=== PATIENT | female | born 1955 | race American Indian/Alaskan Native ===

== ENCOUNTER 2016-06-18 02:18 | Emergency (ER) | payer OTHER ==
[2016-06-18] MEDS ORDERED: PEPCID IV ONE (02:51)
[2016-06-18] MEDS ORDERED: BENADRYL PO ONE (04:50)
--- NOTE | 2016-06-18 05:14 | Emergency Department Report ---
ED Allergic Reaction HPI - General Chief complaint: Allergic Reaction Stated complaint: ALLERGIC REACTION Time Seen by Provider: 06/18/16 04:31 Source: patient Mode of arrival: Ambulatory Limitations: No Limitations - History of Present Illness Initial Comments: 60-year-old female past medical history fibromyalgia presents with complaint of breaking out in hives and feeling severely itchy subsequent to eating a [place] at approximately 12 AM at home. Patient states that her son cooked the meal she ate a taco and within 3 minutes of eating taco she experienced hives on her hands and forearms and felt extremely itchy in her extremities. Denies any shortness of breath no facial swelling no nausea or vomiting. Patient is awake alert and oriented 3 no clinical signs of respiratory distress no wheezing no stridor. Patient denies any previous food allergies, denies applying any recent new cosmetics. States she took 50 mg of Benadryl at home and then came to the ED. MD Complaint: allergic reaction Onset/Timin -: hour(s) Symptoms: rash, itching Severity: moderate Treatment Prior to Arrival: benadryl - Related Data Home Medications Medication Instructions Recorded Confirmed Last Taken Citalopram [celeXA] 10 mg PO DAILY 06/20/13 06/20/13 Unknown Methocarbamol [Robaxin] 750 mg PO Q8H 06/20/13 06/20/13 Unknown Pregabalin [Lyrica] 100 mg PO DAILY 06/20/13 06/20/13 Unknown oxyCODONE /ACETAMINOPHEN [Percocet 1 tab PO Q4H PRN 06/20/13 06/20/13 Unknown 5/325 mg] Previous Rx's Medication Instructions Recorded Last Taken Type Oxycodone HCl/Acetaminophen 1 each PO Q6HR PRN #20 tablet 06/20/13 Unknown Rx [Percocet 10-325 mg] EPINEPHrine (NF) [Epipen (Nf)] 0.3 mg IM ONCE PRN #1 syringekit 06/18/16 Unknown Rx Famotidine [Pepcid] 20 mg PO BID #20 tablet 06/18/16 Unknown Rx diphenhydrAMINE [Benadryl CAP] 25 mg PO Q8HR PRN #30 capsule 06/18/16 Unknown Rx predniSONE [Deltasone] 40 mg PO QDAY #10 tab 06/18/16 Unknown Rx Allergies Allergy/AdvReac Type Severity Reaction Status Date / Time acetaminophen AdvReac Rash Verified 06/20/13 14:56 [From Darvocet-N 100] celecoxib [From Celebrex] AdvReac Unknown Verified 06/20/13 14:56 fluoxetine HCl [From Prozac] AdvReac Rash Verified 06/20/13 14:56 propoxyphene napsylate AdvReac Rash Verified 06/20/13 14:56 [From Darvocet-N 100] ED Review of Systems ROS: Stated complaint: ALLERGIC REACTION Other details as noted in HPI Constitutional: denies: chills, fever Eyes: denies: eye pain, eye discharge, vision change ENT: denies: ear pain, throat pain Respiratory: denies: cough, shortness of breath, wheezing Cardiovascular: denies: chest pain, palpitations Endocrine: no symptoms reported Gastrointestinal: denies: abdominal pain, nausea, diarrhea Genitourinary: denies: urgency, dysuria, discharge Musculoskeletal: denies: back pain, joint swelling, arthralgia Skin: denies: rash, lesions Neurological: denies: headache, weakness, paresthesias Psychiatric: denies: anxiety, depression Hematological/Lymphatic: denies: easy bleeding, easy bruising ED Past Medical Hx - Past Medical History Additional medical history: Fibromyalgia - Surgical History Hx Cholecystectomy: Yes Hx Appendectomy: Yes Additional Surgical History: L rotator cuff - Social History Smoking Status: Never Smoker Substance Use Type: None - Medications Home Medications: Home Medications Medication Instructions Recorded Confirmed Last Taken Type Citalopram [celeXA] 10 mg PO DAILY 06/20/13 06/20/13 Unknown History Methocarbamol [Robaxin] 750 mg PO Q8H 06/20/13 06/20/13 Unknown History Oxycodone HCl/Acetaminophen 1 each PO Q6HR PRN #20 tablet 06/20/13 Unknown Rx [Percocet 10-325 mg] Pregabalin [Lyrica] 100 mg PO DAILY 06/20/13 06/20/13 Unknown History oxyCODONE /ACETAMINOPHEN [Percocet 1 tab PO Q4H PRN 06/20/13 06/20/13 Unknown History 5/325 mg] EPINEPHrine (NF) [Epipen (Nf)] 0.3 mg IM ONCE PRN #1 syringekit 06/18/16 Unknown Rx Famotidine [Pepcid] 20 mg PO BID #20 tablet 06/18/16 Unknown Rx diphenhydrAMINE [Benadryl CAP] 25 mg PO Q8HR PRN #30 capsule 06/18/16 Unknown Rx predniSONE [Deltasone] 40 mg PO QDAY #10 tab 06/18/16 Unknown Rx ED Physical Exam - General Limitations: No Limitations General appearance: alert, in no apparent distress - Head Head exam: Present: atraumatic, normocephalic - Eye Eye exam: Present: normal appearance, PERRL, EOMI - ENT ENT exam: Present: mucous membranes moist - Neck Neck exam: Present: normal inspection - Respiratory Respiratory exam: Present: normal lung sounds bilaterally. Absent: respiratory distress - Cardiovascular Cardiovascular Exam: Present: regular rate, normal rhythm. Absent: systolic murmur, diastolic murmur, rubs, gallop - GI/Abdominal GI/Abdominal exam: Present: soft, normal bowel sounds - Extremities Exam Extremities exam: Present: normal inspection - Back Exam Back exam: Present: normal inspection - Neurological Exam Neurological exam: Present: alert, oriented X3, CN II-XII intact, normal gait - Psychiatric Psychiatric exam: Present: normal affect, normal mood - Skin Skin exam: Present: warm, dry, intact, normal color, urticaria. Absent: rash ED Course Vital Signs 06/18/16 02:44 Temperature 98.2 F Pulse Rate 112 H Respiratory 18 Rate Blood Pressure 166/88 Blood Pressure 166/88 [Left] O2 Sat by Pulse 96 Oximetry ED Medical Decision Making - Medical Decision Making A/P: Urticaria, allergic reaction 1-pt had Benadryl PO before ED assessment, Pepcid and IV Solu-Medrol given in triage 2-patient has no clinical signs of angioedema noted lips swelling oropharynx is patent on clinical exam minor urticaria hands no significant large hives on body 3-discussed with Dr. Young, I advised patient to have Benadryl in the event of itching, we'll give patient course of Pepcid in addition and short course prednisone. 4-will provide patient with prescription for EpiPen. I advised patient that if she experiences a reaction that causes diffuse urticaria with any difficulty breathing and shortness of breath wheezing stridor or facial swelling to use EpiPen immediately call 911 or to return to the ED immediately. Patient understood these instructions clearly and expressed understanding. 5- pt states she already arranged follow-up with an color tester to her previous allergy to a prescription medicine she will follow-up with an color tester within the next 2 weeks Critical care attestation.: If time is entered above; I have spent that time in minutes in the direct care of this critically ill patient, excluding procedure time. ED Disposition Clinical Impression: Food allergy, Urticaria, Itching Disposition: DISCHARGED TO HOME OR SELFCARE Is pt being admited?: No Does the pt Need Aspirin: No Condition: Stable Instructions: Urticaria (ED), Food Allergy (ED), Itchy Skin (ED) Prescriptions: diphenhydrAMINE [Benadryl CAP] 25 mg PO Q8HR PRN #30 capsule PRN Reason: Itching EPINEPHrine (NF) [Epipen (Nf)] 0.3 mg IM ONCE PRN #1 syringekit PRN Reason: Anaphylaxis Famotidine [Pepcid] 20 mg PO BID #20 tablet predniSONE [Deltasone] 40 mg PO QDAY #10 tab Referrals: SAMIRA ZAMORANO MD [Staff Physician] - 3-5 Days Forms: Accompanied Note, Work/School Release Form(ED) Time of Disposition: 05:16
[2016-06-18 05:52] VITALS: BP 156/99
== END 2016-06-18 05:52 | disposition home or self-care (01) ==
LOC: ED 02:18
DX: T78.1XXA Other adverse food reactions, not elsewhere classified, initial encounter (principal); L50.9 Urticaria, unspecified; Z90.49 Acquired absence of other specified parts of digestive tract; Z88.8 Allergy status to other drugs, medicaments and biological substances
CPT/HCPCS: 96374; 96375; 99283; J2930

== ENCOUNTER 2021-06-29 12:38 | Inpatient (IN) | payer OTHER ==
[2021-06-29] MEDS ORDERED: SODIUM CHLORIDE 0.9% 1000 ML 1,000 ML IV ONE ×2 (12:45→16:35)
[2021-06-29] MEDS ORDERED: ACETAMINOPHEN 650 MG RECT SUPP PR ONE (12:46)
[2021-06-29] MEDS ORDERED: PIPERACILLIN/TAZOBACTAM 3.375 3.375 GM/50 ML BAG IV ONE (12:46)
[2021-06-29] MEDS ORDERED: ROCURONIUM 50 MG/5 ML INJ IV ONE ×2 (12:49→12:52)
[2021-06-29] MEDS ORDERED: ETOMIDATE 20 MG/10 ML INJ IV ONE ×2 (12:49→12:52)
--- NOTE | 2021-06-29 13:03 | Emergency Department Report ---
ED General Adult HPI - General Stated complaint: UNRESPONSIVE Time Seen by Provider: 06/29/21 12:42 Source: EMS - History of Present Illness Initial comments: Patient is 65 years old female with past medical history of fibromyalgia. Patient brought to the emergency room via EMS from home for evaluation of altered mental status and hypoxia. EMS reported that patient initial oxygen saturation was 50% improved with a nonrebreather to 100% according to the EMS report. Upon arrival to the ER patient found to be obtunded with an oxygen saturation of 75%. Patient with significant altered mental status. Decision to intubate the patient is made by me. I proceeded with intubation using a glidoscope. Patient is preoxygenated up to 80% however unable to increase her oxygen level beyond that. Using etomidate and rocuronium, I was able to past the endotracheal tube through the vocal cord easily. Patient had good breath so und on both side. Patient oxygen saturation improved to 100%. Patient found to be febrile with an oxygen saturation of 103.1. Sepsis protocol initiated and patient received Tylenol, Zosyn and normal saline 30 mL/kg. - Related Data Home Medications Medication Instructions Recorded Confirmed Last Taken Citalopram [celeXA] 10 mg PO DAILY 06/20/13 06/20/13 Unknown Pregabalin [Lyrica] 100 mg PO DAILY 06/20/13 06/20/13 Unknown methOCARBAMOL [Robaxin] 750 mg PO Q8H 06/20/13 06/20/13 Unknown oxyCODONE /ACETAMINOPHEN [Percocet 1 tab PO Q4H PRN 06/20/13 06/20/13 Unknown 5/325 mg] Previous Rx's Medication Instructions Recorded Last Taken Type Oxycodone HCl/Acetaminophen 1 each PO Q6HR PRN #20 tablet 06/20/13 Unknown Rx [Percocet 10-325 mg] EPINEPHrine (NF) [Epipen (Nf)] 0.3 mg IM ONCE PRN #1 syringekit 06/18/16 Unknown Rx Famotidine [Pepcid] 20 mg PO BID #20 tablet 06/18/16 Unknown Rx diphenhydrAMINE [Benadryl CAP] 25 mg PO Q8HR PRN #30 capsule 06/18/16 Unknown Rx predniSONE [Deltasone] 40 mg PO QDAY #10 tab 06/18/16 Unknown Rx methocarbamoL [Robaxin-750] 750 mg PO Q8H PRN #20 tablet 01/17/18 Unknown Rx Allergies Allergy/AdvReac Type Severity Reaction Status Date / Time acetaminophen AdvReac Rash Verified 06/20/13 14:56 [From Darvocet-N 100] celecoxib [From Celebrex] AdvReac Unknown Verified 06/20/13 14:56 fluoxetine HCl [From Prozac] AdvReac Rash Verified 06/20/13 14:56 propoxyphene napsylate AdvReac Rash Verified 06/20/13 14:56 [From Darvocet-N 100] ED Review of Systems ROS: Stated complaint: UNRESPONSIVE Other details as noted in HPI Comment: Unobtainable due to pts medical conditions ED Past Medical Hx - Past Medical History Additional medical history: Fibromyalgia - Surgical History Hx Cholecystectomy: Yes Hx Appendectomy: Yes Additional Surgical History: L rotator cuff - Social History Smoking Status: Never Smoker - Medications Home Medications: Home Medications Medication Instructions Recorded Confirmed Last Taken Type Citalopram [celeXA] 10 mg PO DAILY 06/20/13 06/20/13 Unknown History Oxycodone HCl/Acetaminophen 1 each PO Q6HR PRN #20 tablet 06/20/13 Unknown Rx [Percocet 10-325 mg] Pregabalin [Lyrica] 100 mg PO DAILY 06/20/13 06/20/13 Unknown History methOCARBAMOL [Robaxin] 750 mg PO Q8H 06/20/13 06/20/13 Unknown History oxyCODONE /ACETAMINOPHEN [Percocet 1 tab PO Q4H PRN 06/20/13 06/20/13 Unknown History 5/325 mg] EPINEPHrine (NF) [Epipen (Nf)] 0.3 mg IM ONCE PRN #1 syringekit 06/18/16 Unknown Rx Famotidine [Pepcid] 20 mg PO BID #20 tablet 06/18/16 Unknown Rx diphenhydrAMINE [Benadryl CAP] 25 mg PO Q8HR PRN #30 capsule 06/18/16 Unknown Rx predniSONE [Deltasone] 40 mg PO QDAY #10 tab 06/18/16 Unknown Rx methocarbamoL [Robaxin-750] 750 mg PO Q8H PRN #20 tablet 01/17/18 Unknown Rx ED Physical Exam - General General appearance: obtunded - Head Head exam: Present: atraumatic, normocephalic, normal inspection - ENT ENT exam: Present: mucous membranes dry - Neck Neck exam: Present: normal inspection - Respiratory Respiratory exam: Present: respiratory distress, wheezes, rales, rhonchi, accessory muscle use, decreased breath sounds, prolonged expiratory - Cardiovascular Cardiovascular Exam: Present: tachycardia - GI/Abdominal GI/Abdominal exam: Present: soft. Absent: distended - Neurological Exam Neurological exam: Present: altered - Psychiatric Psychiatric exam: Present: flat affect - Skin Skin exam: Present: warm, dry ED Course Vital Signs 06/29/21 06/29/21 06/29/21 12:45 12:56 13:00 Temperature Pulse Rate 122 H 143 H Respiratory 21 Rate Blood Pressure 170/86 O2 Sat by Pulse 100 100 87 Oximetry 06/29/21 06/29/21 06/29/21 13:01 13:15 13:31 Temperature 103 F H Pulse Rate 129 H 130 H 113 H Respiratory 19 20 20 Rate Blood Pressure 175/95 170/86 145/77 O2 Sat by Pulse 100 100 100 Oximetry 06/29/21 06/29/21 06/29/21 13:45 14:01 14:15 Temperature Pulse Rate 109 H 101 H 111 H Respiratory 21 20 15 Rate Blood Pressure 141/69 167/75 178/81 O2 Sat by Pulse 100 100 100 Oximetry 06/29/21 06/29/21 06/29/21 14:31 14:45 15:25 Temperature Pulse Rate 113 H 110 H 112 H Respiratory 22 19 16 Rate Blood Pressure 139/72 110/60 112/65 O2 Sat by Pulse 100 100 Oximetry 06/29/21 06/29/21 06/29/21 15:31 15:45 16:01 Temperature Pulse Rate 111 H 109 H 107 H Respiratory 20 18 20 Rate Blood Pressure 128/82 133/78 113/77 O2 Sat by Pulse 100 100 100 Oximetry 06/29/21 06/29/21 06/29/21 16:08 16:24 16:45 Temperature 100.9 F H Pulse Rate 104 H Respiratory 22 Rate Blood Pressure 121/77 O2 Sat by Pulse 100 97 Oximetry 06/29/21 06/29/21 06/29/21 17:01 17:15 17:31 Temperature Pulse Rate 104 H 97 H 102 H Respiratory 18 20 20 Rate Blood Pressure 149/86 162/87 127/76 O2 Sat by Pulse 92 100 100 Oximetry - Intubation Time Out Performed: Yes Sedative: Etomidate Paralytic: Rocuronium Laryngoscope: Maryan Size: 4 ET Tube Size: 7.5 Tube Secured Location: teeth Tube Placement Confirmation: visualized tube passing t, equal breath sounds bilat, no breath sounds over epi, confirmation by capnometr Patient Tolerated Procedure: well, no complications Intubation Complications: none ED Medical Decision Making - Lab Data Result diagrams: 06/29/21 13:40 06/29/21 13:40 - EKG Data -: EKG Interpreted by Me EKG shows normal: sinus rhythm Rate: tachycardia - EKG Data Interpretation: no acute changes - Radiology Data Radiology results: report reviewed - Medical Decision Making Patient is 65 years old female with past medical history of fibromyalgia. Patient brought to the emergency room via EMS from home for evaluation of altered mental status and hypoxia. EMS reported that patient initial oxygen saturation was 50% improved with a nonrebreather to 100% according to the EMS report. Upon arrival to the ER patient found to be obtunded with an oxygen saturation of 75%. Patient with significant altered mental status. Decision to intubate the patient is made by me. I proceeded with intubation using a glidoscope. Patient is preoxygenated up to 80% however unable to increase her oxygen level beyond that. Using etomidate and rocuronium, I was able to past the endotracheal tube through the vocal cord easily. Patient had good breath sound on both side. Patient oxygen saturation improved to 100%. Patient evaluated by me multiple times. Chest x-ray is unremarkable. Labs reviewed and showed a lactic acid of 3.2 improved to 1.[address] brain is negative for acute finding. CT abdomen and pelvis with IV contrast showed evidence of colitis. Patient received Zosyn. Urinalysis is unremarkable. UDS is positive for benzo and thus most likely from this sedation that she is getting now. CT chest with IV contrast is negative for pulmonary embolism. I discussed the patient with Dr. Oliva, he agreed to admit the patient to medical service for further management. Critical Care Time: Yes Critical care time in (mins) excluding proc time.: 45 Critical care attestation.: If time is entered above; I have spent that time in minutes in the direct care of this critically ill patient, excluding procedure time. ED Disposition Clinical Impression: Acute respiratory failure with hypoxia, Sepsis, Acute metabolic encephalopathy, Acute colitis Disposition: 09 ADMITTED INPATIENT Is pt being admited?: Yes Condition: Stable
[2021-06-29] MEDS: MIDAZOLAM/NS Drip 100mg/100ml 100 MG/100 ML BAG IV SCH (13:30)
--- NOTE | 2021-06-29 14:00 | XRay Report ---
CHEST 1 VIEW 06/29/2021 1:28 PM INDICATION / CLINICAL INFORMATION: SOB. COMPARISON: 04/01/2010 FINDINGS: SUPPORT DEVICES: ET tube is satisfactory in position. NG tube extends within the stomach HEART / MEDIASTINUM: No significant abnormality. LUNGS / PLEURA: No significant pulmonary or pleural abnormality. No pneumothorax. ADDITIONAL FINDINGS: No significant additional findings. IMPRESSION: 1. Lines and tubes are satisfactory in position Signer Name: Onur Bender MD Signed: 06/29/2021 1:56 PM Workstation Name: [id number]
[2021-06-29 14:09] LABS: Hemoglobin 8.5 gm/dl (10.1-14.3); Mean Corpuscular HGB Conc 33 % (30-34); Mean Corpuscular Volume 105 fl (79-97); Platelet Count 241 K/mm3 (140-440); Red Blood Count 2.47 M/mm3 (3.65-5.03); Red Cell Distribution Width 16.4 % (13.2-15.2)
[2021-06-29 14:15] LABS: INR 0.99 (0.87-1.13)
[2021-06-29 14:24] LABS: BUN/Creatinine Ratio 9; Blood Urea Nitrogen 9 mg/dL (7-17); Calcium 7.7 mg/dL (8.4-10.2); Hemolysis Index 7
[2021-06-29 14:36] LABS: Albumin 4.2 g/dL (3.9-5); Bilirubin,Direct 0.2 mg/dL (0-0.2)
[2021-06-29 14:39] LABS: ABG HCO3 27.4 mmol/L (20.0-26.0); ABG Methemoglobin 0.5 % (0.0-1.5); ABG Oxygen Saturation 99.6 % (95.0-99.0); ABG PCO2 77.8 mm Hg
[2021-06-29 14:42] LABS: ABG PH 7.164 pH Units (7.350-7.450); ABG PO2 477.1 mm Hg (80.0-90.0)
[2021-06-29 14:52] LABS: Band Neutrophils # (Manual) 0.1 K/mm3; Eosinophils % (Manual) 0 % (0.0-4.3); Total Cells Counted 100
[2021-06-29 14:56] LABS: Anisocytosis 1+; Hypochromasia 1+; Poikilocytosis Few
[2021-06-29 14:57] LABS: Platelet Estimate Consistent w Auto; Stomatocytes Rare; Target Cells Rare; Tear Drop Cells Rare
[2021-06-29] MEDS ORDERED: fentaNYL 100 MCG/2 ML INJ IV PRN (15:48)
--- NOTE | 2021-06-29 16:00 | Cat Scan Report ---
CT head/brain wo con INDICATION: AMS. TECHNIQUE: Routine CT head. All CT scans at this location are performed using CT dose reduction for A MISTY by means of automated exposure control. COMPARISON: None. FINDINGS: Intracranial: Ray-white matter differentiation is maintained. No intracranial hemorrhage. No extra a xial collection. No hydrocephalus. No herniation. Sinuses: Moderate size mucosal retention cyst seen within the right maxillary sinus. Paranasal sinuse s and mastoid air cells are essentially clear. Orbits: Globes are intact. Calvarium: No acute fracture. IMPRESSION: 1. No acute intracranial abnormality. Signer Name: Edvin Calvert MD Signed: 06/29/2021 3:56 PM Workstation Name: [id number]
--- NOTE | 2021-06-29 16:04 | Cat Scan Report ---
CTA CHEST WITH CONTRAST INDICATION / CLINICAL INFORMATION: SOB, HYPOXIA. TECHNIQUE: Axial CT images were obtained through the chest after injection of IV contrast. 3 plane ME P and/or 3D reconstructions were produced. All CT scans at this location are performed using CT dose reduction for ALARA by means of automated exposure control. COMPARISON: None available. FINDINGS: PULMONARY EMBOLUS: None. THORACIC AORTA: No significant abnormality. HEART: No significant abnormality. CORONARY ARTERY CALCIFICATION: Absent -- None. MEDIASTINUM / NICKY: No significant abnormality. PLEURA: No pleural effusion. No pneumothorax. LUNGS: No acute air space or interstitial disease. ADDITIONAL FINDINGS: Endotracheal tube tip is about 2 cm above the carmen. UPPER ABDOMEN: No acute findings. SKELETAL STRUCTURES: No significant osseous abnormality. IMPRESSION: 1. No CT evidence for pulmonary embolism. 2. No acute findings. 3. Endotracheal tube tip is about 2 cm above the carmen. Signer Name: Chung Perkins MD Signed: 06/29/2021 3:59 PM Workstation Name: [id number]
--- NOTE | 2021-06-29 16:05 | Cat Scan Report ---
CT ABDOMEN AND PELVIS WITH CONTRAST HISTORY: abdominal pain COMPARISON: None TECHNIQUE: Routine abdominal and pelvic CT exam performed following intravenous contrast administrat ion.. All CT scans at this location are performed using CT dose reduction for ALARA by means of autom ated exposure control. FINDINGS: CT ABDOMEN: Lung Bases: No significant abnormality. Liver: No significant abnormality. Biliary: No significant abnormality. Spleen: No significant abnormality. Unenlarged. Pancreas: No significant abnormality. Adrenals: No significant abnormality. Kidneys: No significant abnormality. Lymphatics: No lymphadenopathy. Vasculature: No significant abnormality. Bowel/Peritoneum: NG tube tip in the stomach. There is diffuse wall thickening and edema in the colon suggesting colitis. There is no obstruction or free air. CT PELVIC: : There is a Beckford catheter in the bladder. Lymphatics: No lymphadenopathy. Osseous Structures: No aggressive appearing osseous lesions. Additional Findings: None IMPRESSION: 1. Diffuse wall thickening and edema in the colon suggesting colitis without obstruction or free air. Signer Name: Chung Perkins MD Signed: 06/29/2021 4:00 PM Workstation Name: [id number]
[2021-06-29] MEDS: fentaNYL DRIP Premix 2,000 MCG/100 ML BAG IV SCH (16:11)
[2021-06-29] MEDS ORDERED: SODIUM CHLORIDE 0.9% 1000 ML 1,000 ML ONE (16:35)
[2021-06-29 16:56] LABS: Bilirubin,Urine NEG (Negative); Blood,Urine SM (Negative); Color,Urine Colorless (Yellow); Protein,Urine <15 mg/dL mg/dL (Negative); RBC,Urine < 1.0 /HPF (0.0-6.0); Urobilinogen,Urine < 2.0 mg/dL (<2.0); WBC,Urine < 1.0 /HPF (0.0-6.0)
[2021-06-29 17:19] LABS: Amphetamine Screen,Urine Negative; Cannabinoid Screen,Urine Negative; Cocaine Screen,Urine Negative; Methadone Screen,Urine Negative; Opiate Screen,Urine Negative
[2021-06-29 17:36] LABS: Benzodiazepines Screen,Urine Positive
[2021-06-29 18:18] LABS: ABG Base Excess -3.3 mmol/L (-2.0-3.0); ABG HCO3 22.1 mmol/L (20.0-26.0); ABG Methemoglobin 0.2 % (0.0-1.5); ABG Oxygen Saturation 97.5 % (95.0-99.0); ABG PCO2 41.4 mm Hg; ABG PH 7.346 pH Units (7.350-7.450)
--- NOTE | 2021-06-29 20:43 | History and Physical Report ---
History of Present Illness Date of examination: 06/29/21 Date of admission: June 29, 2021 Chief complaint: Severe shortness of breath since a.m. History of present illness: 65-year-old female with past medical history of fibromyalgia basically taking analgesics and muscle relaxers brought to the emergency room by EMS for evaluation of altered mental status and hypoxia. As per EMS initial saturations were 50%. Which improved with a nonrebreather 200% according to EMS report. In the emergency room patient was obtunded with oxygen saturations of 75%. Patient was also with significant altered mental status and decreased responsiveness. Because of the persistent hypoxia patient was intubated in the emergency room. Patient was preoxygenated to 80% and because of limitations patient was intubated. Postintubation patient oxygenation slowly improved to 100%. ED course: Patient was intubated and sepsis protocol initiated. Son was at bedside--- he cannot give me much history except she has fibromyalgia for which she takes Lyrica and Percocet - Past Medical History --Additional medical history: Fibromyalgia - Surgical History --Cholecystectomy: Yes --Appendectomy: Yes --Additional Surgical History: L rotator cuff - Social History --Smoking Status: Never Smoker - Medications --Home Medications: Home Medications Medication Instructions Recorded Confirmed Last Taken Type Citalopram [celeXA] 10 mg PO DAILY 06/20/13 06/20/13 Unknown History Oxycodone HCl/Acetaminophen 1 each PO Q6HR PRN #20 tablet 06/20/13 Unknown Rx [Percocet 10-325 mg] Pregabalin [Lyrica] 100 mg PO DAILY 06/20/13 06/20/13 Unknown History methOCARBAMOL [Robaxin] 750 mg PO Q8H 06/20/13 06/20/13 Unknown History oxyCODONE /ACETAMINOPHEN [Percocet 1 tab PO Q4H PRN 06/20/13 06/20/13 Unknown History 5/325 mg] EPINEPHrine (NF) [Epipen (Nf)] 0.3 mg IM ONCE PRN #1 syringekit 06/18/16 Unknown Rx Famotidine [Pepcid] 20 mg PO BID #20 tablet 06/18/16 Unknown Rx diphenhydrAMINE [Benadryl CAP] 25 mg PO Q8HR PRN #30 capsule 06/18/16 Unknown Rx predniSONE [Deltasone] 40 mg PO QDAY #10 tab 06/18/16 Unknown Rx methocarbamoL [Robaxin-750] 750 mg PO Q8H PRN #20 tablet 01/17/18 Unknown Rx Review of Systems ROS: Stated complaint: UNRESPONSIVE Other details as noted in HPI Comment: Unobtainable due to pts medical conditions Medications and Allergies Allergies Allergy/AdvReac Type Severity Reaction Status Date / Time acetaminophen AdvReac Rash Verified 06/20/13 14:56 [From Darvocet-N 100] celecoxib [From Celebrex] AdvReac Unknown Verified 06/20/13 14:56 fluoxetine HCl [From Prozac] AdvReac Rash Verified 06/20/13 14:56 propoxyphene napsylate AdvReac Rash Verified 06/20/13 14:56 [From Darvocet-N 100] Home Medications Medication Instructions Recorded Confirmed Last Taken Type Citalopram [celeXA] 10 mg PO DAILY 06/20/13 06/20/13 Unknown History Oxycodone HCl/Acetaminophen 1 each PO Q6HR PRN #20 tablet 06/20/13 Unknown Rx [Percocet 10-325 mg] Pregabalin [Lyrica] 100 mg PO DAILY 06/20/13 06/20/13 Unknown History methOCARBAMOL [Robaxin] 750 mg PO Q8H 06/20/13 06/20/13 Unknown History oxyCODONE /ACETAMINOPHEN [Percocet 1 tab PO Q4H PRN 06/20/13 06/20/13 Unknown History 5/325 mg] EPINEPHrine (NF) [Epipen (Nf)] 0.3 mg IM ONCE PRN #1 syringekit 06/18/16 Unknown Rx Famotidine [Pepcid] 20 mg PO BID #20 tablet 06/18/16 Unknown Rx diphenhydrAMINE [Benadryl CAP] 25 mg PO Q8HR PRN #30 capsule 06/18/16 Unknown Rx predniSONE [Deltasone] 40 mg PO QDAY #10 tab 06/18/16 Unknown Rx methocarbamoL [Robaxin-750] 750 mg PO Q8H PRN #20 tablet 01/17/18 Unknown Rx Active Meds: Active Medications Fentanyl (Fentanyl 100 Mcg/2 Ml Inj) 50 mcg IV Q10MIN PRN PRN Reason: ANALGESIA MIDAZOLAM/NS Drip 100mg/100ml (Midazolam/Ns Drip 100mg/100ml) 100 mg in 100 mls @ 1 mls/hr IV TITR GARCIA; Protocol Last Titration: 06/29/21 19:30 Dose: 3 mg/hr, 3 mls/hr Fentanyl Citrate (Fentanyl Drip Premix) 2,000 mcg in 100 mls @ 2.948 mls/hr IV TITR GARCIA; Protocol Last Titration: 06/29/21 16:30 Dose: 2 mcg/kg/hr, 5.897 mls/hr Exam - Constitutional Vitals: Temp Pulse Resp BP Pulse Ox 98.8 F 101 H 23 139/83 100 06/29/21 19:30 06/29/21 20:20 06/29/21 19:30 06/29/21 20:20 06/29/21 20:20 General appearance: Present: severe distress, well-nourished - EENT Eyes: Present: PERRL ENT: hearing intact, clear oral mucosa - Neck Neck: Present: supple, normal ROM - Respiratory Respiratory effort: normal Respiratory: bilateral: CTA, rhonchi - Cardiovascular Heart rate: 110 Rhythm: regular Heart Sounds: Present: S1 & S2. Absent: rub, click - Extremities Extremities: pulses symmetrical, No edema Peripheral Pulses: within normal limits - Abdominal General gastrointestinal: Present: soft, non-tender, non-distended, normal bowel sounds Female genitourinary: Present: normal - Integumentary Integumentary: Present: clear, warm, dry - Musculoskeletal Musculoskeletal: generalized weakness - Psychiatric Psychiatric: other - Neurologic Neurologic: other (Unresponsive) - Allied Health Allied health notes reviewed: nursing, case management HEART Score - HEART Score Troponin: Troponin T < 0.010 ng/mL (0.00-0.029) 06/29/21 13:40 Results - Labs CBC & Chem 7: 06/30/21 04:56 06/30/21 04:56 Labs: Laboratory Last Values WBC 5.9 K/mm3 (4.5-11.0) 06/29/21 13:40 RBC 2.47 M/mm3 (3.65-5.03) L 06/29/21 13:40 Hgb 8.5 gm/dl (10.1-14.3) L 06/29/21 13:40 Hct 26.0 % (30.3-42.9) L 06/29/21 13:40 MCV 105 fl (79-97) H 06/29/21 13:40 MCH 34 pg (28-32) H 06/29/21 13:40 MCHC 33 % (30-34) 06/29/21 13:40 RDW 16.4 % (13.2-15.2) H 06/29/21 13:40 Plt Count 241 K/mm3 (140-440) 06/29/21 13:40 Add Manual Diff Complete 06/29/21 13:40 Total Counted 100 06/29/21 13:40 Seg 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 % [employer]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 06/29/21 13:40 Seg Neuts % (Manual) 90.0 % (40.0-70.0) H 06/29/21 13:40 Band Neutrophils % 2.0 % 06/29/21 13:40 Lymphocytes % (Manual) 5.0 % (13.4-35.0) L 06/29/21 13:40 Reactive Lymphs % (Man) 0 % 06/29/21 13:40 Monocytes % (Manual) 2.0 % (0.0-7.3) 06/29/21 13:40 Eosinophils % (Manual) 0 % (0.0-4.3) 06/29/21 13:40 Basophils % (Manual) 1.0 % (0.0-1.8) 06/29/21 13:40 Metamyelocytes % 0 % 06/29/21 13:40 Myelocytes % 0 % 06/29/21 13:40 Promyelocytes % 0 % 06/29/21 13:40 Blast Cells % 0 % 06/29/21 13:40 Nucleated RBC % 1.0 % (0.0-0.9) H 06/29/21 13:40 Seg Neutrophils # Man 5.3 K/mm3 (1.8-7.7) 06/29/21 13:40 Band Neutrophils # 0.1 K/mm3 06/29/21 13:40 Lymphocytes # (Manual) 0.3 K/mm3 (1.2-5.4) L 06/29/21 13:40 Abs React Lymphs (Man) 0.0 K/mm3 06/29/21 13:40 Monocytes # (Manual) 0.1 K/mm3 (0.0-0.8) 06/29/21 13:40 Eosinophils # (Manual) 0.0 K/mm3 (0.0-0.4) 06/29/21 13:40 Basophils # (Manual) 0.1 K/mm3 (0.0-0.1) 06/29/21 13:40 Metamyelocytes # 0.0 K/mm3 06/29/21 13:40 Myelocytes # 0.0 K/mm3 06/29/21 13:40 Promyelocytes # 0.0 K/mm3 06/29/21 13:40 Blast Cells # 0.0 K/mm3 06/29/21 13:40 WBC Morphology Not Reportable 06/29/21 13:40 Hypersegmented Neuts Not Reportable 06/29/21 13:40 Hyposegmented Neuts 1+ 06/29/21 13:40 Hypogranular Neuts Not Reportable 06/29/21 13:40 Smudge Cells Not Reportable 06/29/21 13:40 Toxic Granulation Not Reportable 06/29/21 13:40 Toxic Vacuolation Not Reportable 06/29/21 13:40 Dohle Bodies Not Reportable 06/29/21 13:40 Pelger-Huet Anomaly Not Reportable 06/29/21 13:40 Zain Rods Not Reportable 06/29/21 13:40 Platelet Estimate Consistent w auto 06/29/21 13:40 Clumped Platelets Not Reportable 06/29/21 13:40 Plt Clumps, EDTA Not Reportable 06/29/21 13:40 Large Platelets Not Reportable 06/29/21 13:40 Giant Platelets Not Reportable 06/29/21 13:40 Platelet Satelliting Not Reportable 06/29/21 13:40 Plt Morphology Comment Not Reportable 06/29/21 13:40 RBC Morphology Not Reportable 06/29/21 13:40 Dimorphic RBCs Not Reportable 06/29/21 13:40 Polychromasia Not Reportable 06/29/21 13:40 Hypochromasia 1+ 06/29/21 13:40 Poikilocytosis Few 06/29/21 13:40 Anisocytosis 1+ 06/29/21 13:40 Microcytosis 1+ 06/29/21 13:40 Macrocytosis Not Reportable 06/29/21 13:40 Spherocytes Not Reportable 06/29/21 13:40 Pappenheimer Bodies Not Reportable 06/29/21 13:40 Sickle Cells Not Reportable 06/29/21 13:40 Target Cells Rare 06/29/21 13:40 Tear Drop Cells Rare 06/29/21 13:40 Ovalocytes Not Reportable 06/29/21 13:40 Stomatocytes Rare 06/29/21 13:40 Helmet Cells Not Reportable 06/29/21 13:40 [place] Bodies Not Reportable 06/29/21 13:40 [place] Rings Not Reportable 06/29/21 13:40 P[place]lette Cells Not Reportable 06/29/21 13:40 Bite Cells Not Reportable 06/29/21 13:40 Crenated Cell Not Reportable 06/29/21 13:40 Elliptocytes Not Reportable 06/29/21 13:40 Acanthocytes (Spur) Not Reportable 06/29/21 13:40 Rouleaux Not Reportable 06/29/21 13:40 Hemoglobin C Crystals Not Reportable 06/29/21 13:40 Schistocytes Not Reportable 06/29/21 13:40 Malaria parasites Not Reportable 06/29/21 13:40 Luis Bodies Not Reportable 06/29/21 13:40 Hem Pathologist Commnt No 06/29/21 13:40 PT 14.2 Sec. (12.2-14.9) 06/29/21 13:40 INR 0.99 (0.87-1.13) 06/29/21 13:40 APTT 36.0 Sec. (24.2-36.6) 06/29/21 13:40 ABG pH 7.346 pH Units (7.350-7.450) L 06/29/21 18:05 ABG pCO2 41.4 mm Hg 06/29/21 18:05 ABG pO2 100.0 mm Hg (80.0-90.0) H 06/29/21 18:05 ABG HCO3 22.1 mmol/L (20.0-26.0) 06/29/21 18:05 ABG O2 Saturation 97.5 % (95.0-99.0) 06/29/21 18:05 ABG O2 Content 11.6 (0.0-44) 06/29/21 18:05 ABG Base Excess -3.3 mmol/L (-2.0-3.0) L 06/29/21 18:05 ABG Hemoglobin 8.5 gm/dl (12.0-16.0) L 06/29/21 18:05 ABG Carboxyhemoglobin 1.3 % (0.0-5.0) 06/29/21 18:05 ABG Methemoglobin 0.2 % (0.0-1.5) 06/29/21 18:05 Oxyhemoglobin 96.0 % (95.0-99.0) 06/29/21 18:05 FiO2 40 % 06/29/21 18:05 Sodium 149 mmol/L (137-145) H 06/29/21 13:40 Potassium 3.5 mmol/L (3.6-5.0) L 06/29/21 13:40 Chloride 112.8 mmol/L (98-107) H 06/29/21 13:40 Carbon Dioxide 24 mmol/L (22-30) 06/29/21 13:40 Anion Gap 16 mmol/L 06/29/21 13:40 BUN 9 mg/dL (7-17) 06/29/21 13:40 Creatinine 1.0 mg/dL (0.6-1.2) 06/29/21 13:40 Estimated GFR > 60 ml/min 06/29/21 13:40 BUN/Creatinine Ratio 9 % 06/29/21 13:40 Glucose 144 mg/dL (65-100) H 06/29/21 13:40 Lactic Acid 1.20 mmol/L (0.7-2.0) 06/29/21 16:05 Calcium 7.7 mg/dL (8.4-10.2) L 06/29/21 13:40 Total Bilirubin 0.80 mg/dL (0.1-1.2) 06/29/21 13:40 Direct Bilirubin 0.2 mg/dL (0-0.2) 06/29/21 13:40 Indirect Bilirubin 0.6 mg/dL 06/29/21 13:40 AST 65 units/L (5-40) H 06/29/21 13:40 ALT 19 units/L (7-56) 06/29/21 13:40 Alkaline Phosphatase 153 units/L (35-129) H 06/29/21 13:40 Troponin T < 0.010 ng/mL (0.00-0.029) 06/29/21 13:40 NT-Pro-B Natriuret Pep 394.9 pg/mL (0-900) 06/29/21 13:40 Total Protein 6.2 g/dL (6.3-8.2) L 06/29/21 13:40 Albumin 4.2 g/dL (3.9-5) 06/29/21 13:40 Albumin/Globulin Ratio 2.1 % 06/29/21 13:40 Urine Color Colorless (Yellow) 06/29/21 13:01 Urine Turbidity Clear (Clear) 06/29/21 13:01 Urine pH 7.0 (5.0-7.0) 06/29/21 13:01 Ur Specific [place] 1.013 (1.003-1.030) 06/29/21 13:01 Urine Protein <15 mg/dl mg/dL (Negative) 06/29/21 13:01 Urine Glucose (UA) Neg mg/dL (Negative) 06/29/21 13:01 Urine Ketones Neg mg/dL (Negative) 06/29/21 13:01 Urine Blood Sm (Negative) 06/29/21 13:01 Urine Nitrite Neg (Negative) 06/29/21 13:01 Urine Bilirubin Neg (Negative) 06/29/21 13:01 Urine Urobilinogen < 2.0 mg/dL (<2.0) 06/29/21 13:01 Ur Leukocyte Esterase Neg (Negative) 06/29/21 13:01 Urine WBC (Auto) < 1.0 /HPF (0.0-6.0) 06/29/21 13:01 Urine RBC (Auto) < 1.0 /HPF (0.0-6.0) 06/29/21 13:01 Urine Opiates Screen Negative 06/29/21 Unknown Urine Methadone Screen Negative 06/29/21 Unknown Ur Barbiturates Screen Negative 06/29/21 Unknown Ur Phencyclidine Scrn Negative 06/29/21 Unknown Ur Amphetamines Screen Negative 06/29/21 Unknown U Benzodiazepines Scrn Positive 06/29/21 Unknown Urine Cocaine Screen Negative 06/29/21 Unknown U Marijuana (THC) Screen Negative 06/29/21 Unknown Drugs of Abuse Note Disclamer 06/29/21 Unknown Short CBC 06/29/21 06/30/21 Range/Units 13:40 04:56 WBC 5.9 4.2 L (4.5-11.0) K/mm3 Hgb 8.5 L 8.4 L (10.1-14.3) gm/dl Hct 26.0 L 25.2 L (30.3-42.9) % Plt Count 241 236 (140-440) K/mm3 BMP 06/29/21 06/30/21 13:40 04:56 Sodium 149 H 156 H Potassium 3.5 L 3.9 Chloride 112.8 H 123.6 H Carbon Dioxide 24 19 L BUN 9 12 Creatinine 1.0 0.9 Glucose 144 H 126 H Calcium 7.7 L 7.3 L Cardiac Enzymes 06/29/21 Range/Units 13:40 Troponin T < 0.010 (0.00-0.029) ng/mL Liver Function 06/29/21 06/30/21 Range/Units 13:40 04:56 Total Bilirubin 0.80 0.50 (0.1-1.2) mg/dL Direct Bilirubin 0.2 (0-0.2) mg/dL AST 65 H 37 (5-40) units/L ALT 19 18 (7-56) units/L Alkaline Phosphatase 153 H 121 (35-129) units/L Albumin 4.2 3.9 (3.9-5) g/dL Urine 06/29/21 Range/Units 13:01 Urine Color Colorless (Yellow) Urine pH 7.0 (5.0-7.0) Ur Specific [place] 1.013 (1.003-1.030) Urine Protein <15 mg/dl (Negative) mg/dL Urine Glucose (UA) Neg (Negative) mg/dL Microbiology: Microbiology 06/29/21 14:08 Peripheral/Venous Blood Culture - Preliminary Culture in Progress 06/29/21 13:40 Peripheral/Venous Blood Culture - Preliminary Culture in Progress - Imaging and Cardiology EKG: report reviewed Chest x-ray: report reviewed Imaging and Cardiology: Chest x-ray No significant pulmonary or pleural abnormalities Assessment and Plan Assessment and plan: Critical care statement The high probability OF a clinically significant sudden or life-threatening deterioration of the cardiorespiratory system and endocrine system required my full and direct attention, intervention and postoperative management. The aggregate critical care time was 40 minutes. The time is in addition to time spent performing reported procedures but includes the followin: Data review and interpretation 2: Patient assessment and monitoring of vital signs 3: Documentation 4:: Medication orders and management Advance Directives: Yes (Full code) VTE prophylaxis?: Chemical Plan of care discussed with patient/family: Yes - Patient Problems (1) Acute metabolic encephalopathy Current Visit: Yes Status: Acute Plan to address problem: Etiology unclear Patient was high sodium levels of 149 Half-normal saline to D5W Treat for sepsis (2) Acute respiratory failure with hypoxia Current Visit: Yes Status: Acute Plan to address problem: Etiology unclear Chest x-ray is clear White count is normal COVID to be ruled out 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 Patient is full code. Son acknowledged understanding and agreement with care plan +30 minutes.
[2021-06-29] MEDS ORDERED: ONDANSETRON 4 MG/2 ML INJ IV PRN (20:44)
[2021-06-29] MEDS ORDERED: ACETAMINOPHEN 325 MG TAB PO PRN (20:44)
[2021-06-29] MEDS ORDERED: METOCLOPRAMIDE 10 MG/2 ML INJ IV PRN (20:44)
[2021-06-29] MEDS ORDERED: SODIUM CHLORIDE 0.9% 1000 ML 1,000 ML IV SCH (20:45)
[2021-06-29] MEDS ORDERED: IPRATROPIUM/ALBUTEROL SULFATE 3 ML AMPUL.NEB IH PRN (20:52)
[2021-06-29] MEDS ORDERED: VANCOMYCIN PHARMACY TO DOSE IV SCH (21:00)
[2021-06-29] MEDS ORDERED: VANCOMYCIN 1,250 MG in SODIUM CHLORIDE 0.9% 250ML 250 ML IV ONE (21:15)
[2021-06-29] MEDS: CEFEPIME/NS 2 GM/100 ML 2 GM/100 ML BAG IV SCH (21:35)
[2021-06-29] MEDS: methylPREDNISolone Sod Succinate 125 MG/2 ML INJ IV SCH (21:42)
[2021-06-29] MEDS: FAMOTIDINE 20 MG/2 ML INJ IV SCH (21:43)
[2021-06-29] MEDS: HEPARIN 5,000 UNIT/1 ML VIAL SUB-Q SCH (21:44)
[2021-06-30] MEDS: MIDAZOLAM/NS Drip 100mg/100ml 100 MG/100 ML BAG IV SCH (03:12)
[2021-06-30] MEDS: fentaNYL DRIP Premix 2,000 MCG/100 ML BAG IV SCH (03:12)
[2021-06-30 04:16] LABS: ABG Base Excess -2.6 mmol/L (-2.0-3.0); ABG HCO3 20.4 mmol/L (20.0-26.0); ABG Oxygen Saturation 98.9 % (95.0-99.0); ABG PCO2 28.4 mm Hg; ABG PH 7.474 pH Units (7.350-7.450); ABG PO2 152.3 mm Hg (80.0-90.0)
[2021-06-30 04:17] LABS: ABG Methemoglobin 0.3 % (0.0-1.5)
[2021-06-30] MEDS: CEFEPIME/NS 2 GM/100 ML 2 GM/100 ML BAG IV SCH (04:26)
[2021-06-30 05:24] LABS: Basophils % (Auto) 0.1 % (0.0-1.8); Hematocrit 25.2 % (30.3-42.9); Hemoglobin 8.4 gm/dl (10.1-14.3); Lymphocytes # (Auto) 0.3 K/mm3 (1.2-5.4); Lymphocytes % (Auto) 8.1 % (13.4-35.0); Mean Corpuscular HGB Conc 33 % (30-34); Mean Corpuscular Volume 104 fl (79-97); Monocytes # (Auto) 0.1 K/mm3 (0.0-0.8); Monocytes % (Auto) 3.4 % (0.0-7.3); Platelet Count 236 K/mm3 (140-440); Red Blood Count 2.44 M/mm3 (3.65-5.03)
[2021-06-30] MEDS: methylPREDNISolone Sod Succinate 125 MG/2 ML INJ IV SCH ×3 (05:46→22:11)
[2021-06-30 05:49] LABS: Alanine Aminotransferase 18 units/L (7-56); Albumin 3.9 g/dL (3.9-5); BUN/Creatinine Ratio 13; Blood Urea Nitrogen 12 mg/dL (7-17); Calcium 7.3 mg/dL (8.4-10.2); Hemolysis Index 0
[2021-06-30] MEDS: IPRATROPIUM/ALBUTEROL SULFATE 3 ML AMPUL.NEB IH SCH ×4 (09:30→23:10)
[2021-06-30] MEDS: HEPARIN 5,000 UNIT/1 ML VIAL SUB-Q SCH ×2 (10:05→22:11)
[2021-06-30] MEDS: FAMOTIDINE 20 MG/2 ML INJ IV SCH ×2 (10:05→22:11)
--- NOTE | 2021-06-30 10:48 | Electrocardiograph Report ---
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
[2021-06-30 10:56] LABS: ABG Methemoglobin 0.3 % (0.0-1.5); ABG Oxygen Saturation 97.7 % (95.0-99.0); ABG PH 7.405 pH Units (7.350-7.450)
[2021-06-30] MEDS ORDERED: ALBUTEROL 2.5 MG/3 ML NEBU IH PRN (12:00)
[2021-06-30] MEDS: VANCOMYCIN 250 MG/10 ML ORAL LIQD PO SCH ×3 (14:02→23:29)
--- NOTE | 2021-06-30 19:03 | Progress Note ---
Assessment and Plan Assessment and plan: This is a 65-year-old female with fibromyalgia admitted with acute hypoxic respiratory failure and colitis Neuro: Acute metabolic encephalopathy, h/o fibromyalgia, ? depression -UDS positive for benzodiazepines -Sedated with fentanyl and Versed -RASS goal 0 to -1 -Weaned off for extubation -Avoid delirium -Reorientation as needed -Maintain sleep-wake cycle -aspiration/seizure precautions -As needed analgesia -CT head shows no acute intracranial abnormality -Resume Celexa Cardiac: ST, ? HTN -Blood pressure monitoring per protocol -Hydralazine PRN -Please update home meds Respiratory: Acute hypoxic respiratory failure -CCM consulted, appreciate recommendations -Intubated on 06/29 with 7.50 ETT at 22 cm for airway protection in the ED -A.m. vent settings: AC Rate 20, TV 450, Peep 6, FiO2 30% -See RT notes for titration -Extubated 06/30 to NC -A.m. ABG and CXR noted -VAP bundle -SPO2 monitoring GI: Protein calorie malnutrition -24 hours -1381 mL -PPI -NTR consulted for tube feedings -OG tube removed during extubation -Will attempt bedside swallow evaluation in the a.m. : Hypernatremia, hyperchloremia metabolic acidosis -D5W drip -Strict intake and output -Renally dose medications -Avoid nephrotoxic medications -Trend BMP -Possible addition of free water flush in the a.m. with p.o. access if needed ID: Colitis, r/o C diff -Antibiotic therapy with PO vanc -CT a/p shows diffuse wall thickening and edema in the colon suggesting colitis without obstruction or free air -Contact precaution -COVID-19 PCR and -f/u blood culture -Monitor WBC and temperature curve Endo: NAD -Avoid hypoglycemia -SSI -Accu-Cheks q. 6 Heme: Elevated D-dimer, leukopenia -CTA chest shows no evidence of pulmonary embolism no acute -Bilateral lower extremity Doppler ultrasound pending -Trend CBC -Transfuse hemoglobin less than 7 -Heparin subcu -Monitor for signs of bleeding -SCDs to BLE while in bed The high probability of a clinically significant, sudden or life threatening deterioration of the [resp] system(s) required my full and direct attention, intervention and personal management. The aggregate critical care time was [60] minutes. 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 Per EMS initial saturation were 50% which improved to 100% with NRB. In the emergency room patient was obtunded with SpO2 of 75% and due to persistent hypoxia patient was intubated in the emergency department. Patient was admitted to the hospital service with acute hypoxic respiratory failure and initiated sepsis protocol with consults to [facility]. Hospital course to date: 06/30: COVID-19 PCR negative, patient reported to have copious diarrhea with colitis on CT abdomen/pelvis and was started on p.o. vancomycin with a sample sent on for C. difficile. Patient was on minimal vent settings and sedated on fentanyl and Versed. Patient and Versed weaned off and patient was eventually extubated this afternoon. Her UDS was positive for benzodiazepines. We will continue D5W for hypernatremia. CTA was negative for PE but will order bilateral Doppler ultrasounds for elevated D-dimer. Hospitalist Physical - Constitutional Vitals: Temp Pulse Resp BP Pulse Ox 99.2 F 101 H 17 161/86 99 06/30/21 17:35 06/30/21 18:30 06/30/21 18:30 06/30/21 18:30 06/30/21 18:30 General appearance: Present: no acute distress, well-nourished - EENT Eyes: Present: PERRL, EOM intact ENT: hearing intact, clear oral mucosa, dentition normal - Neck Neck: Present: normal ROM - Respiratory Respiratory effort: normal Respiratory: bilateral: CTA - Cardiovascular Rhythm: regular Heart Sounds: Present: S1 & S2. Absent: systolic murmur, diastolic murmur - Extremities Extremities: no ischemia, pulses intact, pulses symmetrical, No edema, normal temperature, normal color, Full ROM Peripheral Pulses: within normal limits - Abdominal General gastrointestinal: soft, non-tender, non-distended, normal bowel sounds - Integumentary Integumentary: Present: warm, dry - Psychiatric Psychiatric: cooperative, depressed - Neurologic Neurologic: CNII-XII intact, no focal deficits, moves all extremities - Allied Health Allied health notes reviewed: nursing, RT, social work HEART Score - HEART Score Troponin: Troponin T < 0.010 ng/mL (0.00-0.029) 06/29/21 13:40 Results - Labs CBC & Chem 7: 06/30/21 04:56 06/30/21 04:56 Labs: Laboratory Last Values WBC 4.2 K/mm3 (4.5-11.0) L 06/30/21 04:56 RBC 2.44 M/mm3 (3.65-5.03) L 06/30/21 04:56 Hgb 8.4 gm/dl (10.1-14.3) L 06/30/21 04:56 Hct 25.2 % (30.3-42.9) L 06/30/21 04:56 MCV 104 fl (79-97) H 06/30/21 04:56 MCH 35 pg (28-32) H 06/30/21 04:56 MCHC 33 % (30-34) 06/30/21 04:56 RDW 16.0 % (13.2-15.2) H 06/30/21 04:56 Plt Count 236 K/mm3 (140-440) 06/30/21 04:56 Lymph % (Auto) 8.1 % (13.4-35.0) L 06/30/21 04:56 [place] % (Auto) 3.4 % (0.0-7.3) 06/30/21 04:56 Eos % (Auto) 0.0 % (0.0-4.3) 06/30/21 04:56 Baso % (Auto) 0.1 % (0.0-1.8) 06/30/21 04:56 Lymph # (Auto) 0.3 K/mm3 (1.2-5.4) L 06/30/21 04:56 [place] # (Auto) 0.1 K/mm3 (0.0-0.8) 06/30/21 04:56 Eos # (Auto) 0.0 K/mm3 (0.0-0.4) 06/30/21 04:56 Baso # (Auto) 0.0 K/mm3 (0.0-0.1) 06/30/21 04:56 Add Manual Diff Complete 06/29/21 13:40 Total Counted 100 06/29/21 13:40 Seg Neutrophils % 88.4 % (40.0-70.0) H 06/30/21 04:56 Seg Neuts % (Manual) 90.0 % (40.0-70.0) H 06/29/21 13:40 Band Neutrophils % 2.0 % 06/29/21 13:40 Lymphocytes % (Manual) 5.0 % (13.4-35.0) L 06/29/21 13:40 Reactive Lymphs % (Man) 0 % 06/29/21 13:40 Monocytes % (Manual) 2.0 % (0.0-7.3) 06/29/21 13:40 Eosinophils % (Manual) 0 % (0.0-4.3) 06/29/21 13:40 Basophils % (Manual) 1.0 % (0.0-1.8) 06/29/21 13:40 Metamyelocytes % 0 % 06/29/21 13:40 Myelocytes % 0 % 06/29/21 13:40 Promyelocytes % 0 % 06/29/21 13:40 Blast Cells % 0 % 06/29/21 13:40 Nucleated RBC % 1.0 % (0.0-0.9) H 06/29/21 13:40 Seg Neutrophils # 3.7 K/mm3 (1.8-7.7) 06/30/21 04:56 Seg Neutrophils # Man 5.3 K/mm3 (1.8-7.7) 06/29/21 13:40 Band Neutrophils # 0.1 K/mm3 06/29/21 13:40 Lymphocytes # (Manual) 0.3 K/mm3 (1.2-5.4) L 06/29/21 13:40 Abs React Lymphs (Man) 0.0 K/mm3 06/29/21 13:40 Monocytes # (Manual) 0.1 K/mm3 (0.0-0.8) 06/29/21 13:40 Eosinophils # (Manual) 0.0 K/mm3 (0.0-0.4) 06/29/21 13:40 Basophils # (Manual) 0.1 K/mm3 (0.0-0.1) 06/29/21 13:40 Metamyelocytes # 0.0 K/mm3 06/29/21 13:40 Myelocytes # 0.0 K/mm3 06/29/21 13:40 Promyelocytes # 0.0 K/mm3 06/29/21 13:40 Blast Cells # 0.0 K/mm3 06/29/21 13:40 WBC Morphology Not Reportable 06/29/21 13:40 Hypersegmented Neuts Not Reportable 06/29/21 13:40 Hyposegmented Neuts 1+ 06/29/21 13:40 Hypogranular Neuts Not Reportable 06/29/21 13:40 Smudge Cells Not Reportable 06/29/21 13:40 Toxic Granulation Not Reportable 06/29/21 13:40 Toxic Vacuolation Not Reportable 06/29/21 13:40 Dohle Bodies Not Reportable 06/29/21 13:40 Pelger-Huet Anomaly Not Reportable 06/29/21 13:40 Zain Rods Not Reportable 06/29/21 13:40 Platelet Estimate Consistent w auto 06/29/21 13:40 Clumped Platelets Not Reportable 06/29/21 13:40 Plt Clumps, EDTA Not Reportable 06/29/21 13:40 Large Platelets Not Reportable 06/29/21 13:40 Giant Platelets Not Reportable 06/29/21 13:40 Platelet Satelliting Not Reportable 06/29/21 13:40 Plt Morphology Comment Not Reportable 06/29/21 13:40 RBC Morphology Not Reportable 06/29/21 13:40 Dimorphic RBCs Not Reportable 06/29/21 13:40 Polychromasia Not Reportable 06/29/21 13:40 Hypochromasia 1+ 06/29/21 13:40 Poikilocytosis Few 06/29/21 13:40 Anisocytosis 1+ 06/29/21 13:40 Microcytosis 1+ 06/29/21 13:40 Macrocytosis Not Reportable 06/29/21 13:40 Spherocytes Not Reportable 06/29/21 13:40 Pappenheimer Bodies Not Reportable 06/29/21 13:40 Sickle Cells Not Reportable 06/29/21 13:40 Target Cells Rare 06/29/21 13:40 Tear Drop Cells Rare 06/29/21 13:40 Ovalocytes Not Reportable 06/29/21 13:40 Stomatocytes Rare 06/29/21 13:40 Helmet Cells Not Reportable 06/29/21 13:40 [place] Bodies Not Reportable 06/29/21 13:40 [place] Rings Not Reportable 06/29/21 13:40 [place] Cells Not Reportable 06/29/21 13:40 Bite Cells Not Reportable 06/29/21 13:40 Crenated Cell Not Reportable 06/29/21 13:40 Elliptocytes Not Reportable 06/29/21 13:40 Acanthocytes (Spur) Not Reportable 06/29/21 13:40 Rouleaux Not Reportable 06/29/21 13:40 Hemoglobin C Crystals Not Reportable 06/29/21 13:40 Schistocytes Not Reportable 06/29/21 13:40 Malaria parasites Not Reportable 06/29/21 13:40 Luis Bodies Not Reportable 06/29/21 13:40 Hem Pathologist Commnt No 06/29/21 13:40 PT 14.2 Sec. (12.2-14.9) 06/29/21 13:40 INR 0.99 (0.87-1.13) 06/29/21 13:40 APTT 36.0 Sec. (24.2-36.6) 06/29/21 13:40 D-Dimer 1121.59 ng/mlDDU (0-234) H 06/30/21 08:16 ABG pH 7.405 pH Units (7.350-7.450) 06/30/21 10:33 ABG pCO2 31.0 mm Hg 06/30/21 10:33 ABG pO2 100.0 mm Hg (80.0-90.0) H 06/30/21 10:33 ABG HCO3 19.0 mmol/L (20.0-26.0) L 06/30/21 10:33 ABG O2 Saturation 97.7 % (95.0-99.0) 06/30/21 10:33 ABG O2 Content 12.0 (0.0-44) 06/30/21 10:33 ABG Base Excess -5.0 mmol/L (-2.0-3.0) L 06/30/21 10:33 ABG Hemoglobin 8.8 gm/dl (12.0-16.0) L 06/30/21 10:33 ABG Carboxyhemoglobin 1.1 % (0.0-5.0) 06/30/21 10:33 ABG Methemoglobin 0.3 % (0.0-1.5) 06/30/21 10:33 Oxyhemoglobin 96.3 % (95.0-99.0) 06/30/21 10:33 FiO2 30 % 06/30/21 10:33 Sodium 156 mmol/L (137-145) H 06/30/21 04:56 Potassium 3.9 mmol/L (3.6-5.0) 06/30/21 04:56 Chloride 123.6 mmol/L (98-107) H 06/30/21 04:56 Carbon Dioxide 19 mmol/L (22-30) L 06/30/21 04:56 Anion Gap 17 mmol/L 06/30/21 04:56 BUN 12 mg/dL (7-17) 06/30/21 04:56 Creatinine 0.9 mg/dL (0.6-1.2) 06/30/21 04:56 Estimated GFR > 60 ml/min 06/30/21 04:56 BUN/Creatinine Ratio 13 % 06/30/21 04:56 Glucose 126 mg/dL (65-100) H 06/30/21 04:56 POC Glucose 111 mg/dL (70-105) H 06/30/21 16:35 Lactic Acid 1.30 mmol/L (0.7-2.0) 06/30/21 Unknown Calcium 7.3 mg/dL (8.4-10.2) L 06/30/21 04:56 Ferritin 224.7 ng/mL (10.0-200.0) H 06/30/21 08:16 Total Bilirubin 0.50 mg/dL (0.1-1.2) 06/30/21 04:56 Direct Bilirubin 0.2 mg/dL (0-0.2) 06/29/21 13:40 Indirect Bilirubin 0.6 mg/dL 06/29/21 13:40 AST 37 units/L (5-40) 06/30/21 04:56 ALT 18 units/L (7-56) 06/30/21 04:56 Alkaline Phosphatase 121 units/L (35-129) 06/30/21 04:56 Lactate Dehydrogenase 312 units/L (91-180) H 06/30/21 08:16 Troponin T < 0.010 ng/mL (0.00-0.029) 06/29/21 13:40 C-Reactive Protein 12.00 mg/dL (0.00-1.30) H 06/30/21 08:16 NT-Pro-B Natriuret Pep 394.9 pg/mL (0-900) 06/29/21 13:40 Total Protein 5.9 g/dL (6.3-8.2) L 06/30/21 04:56 Albumin 3.9 g/dL (3.9-5) 06/30/21 04:56 Albumin/Globulin Ratio 2.0 % 06/30/21 04:56 Urine Color Colorless (Yellow) 06/29/21 13:01 Urine Turbidity Clear (Clear) 06/29/21 13:01 Urine pH 7.0 (5.0-7.0) 06/29/21 13:01 Ur Specific [place] 1.013 (1.003-1.030) 06/29/21 13:01 Urine Protein <15 mg/dl mg/dL (Negative) 06/29/21 13:01 Urine Glucose (UA) Neg mg/dL (Negative) 06/29/21 13:01 Urine Ketones Neg mg/dL (Negative) 06/29/21 13:01 Urine Blood Sm (Negative) 06/29/21 13:01 Urine Nitrite Neg (Negative) 06/29/21 13:01 Urine Bilirubin Neg (Negative) 06/29/21 13:01 Urine Urobilinogen < 2.0 mg/dL (<2.0) 06/29/21 13:01 Ur Leukocyte Esterase Neg (Negative) 06/29/21 13:01 Urine WBC (Auto) < 1.0 /HPF (0.0-6.0) 06/29/21 13:01 Urine RBC (Auto) < 1.0 /HPF (0.0-6.0) 06/29/21 13:01 Urine Opiates Screen Negative 06/29/21 Unknown Urine Methadone Screen Negative 06/29/21 Unknown Ur Barbiturates Screen Negative 06/29/21 Unknown Ur Phencyclidine Scrn Negative 06/29/21 Unknown Ur Amphetamines Screen Negative 06/29/21 Unknown U Benzodiazepines Scrn Positive 06/29/21 Unknown Urine Cocaine Screen Negative 06/29/21 Unknown U Marijuana (THC) Screen Negative 06/29/21 Unknown Drugs of Abuse Note Disclamer 06/29/21 Unknown Coronavirus (PCR) Negative (Negative) 06/30/21 Unknown Microbiology: Microbiology 06/29/21 13:40 Peripheral/Venous Blood Culture - Preliminary NO GROWTH AFTER 24 HOURS 06/29/21 14:08 Peripheral/Venous Blood Culture - Preliminary NO GROWTH AFTER 24 HOURS [place]/IV: Voiding Method Indwelling Catheter Active Medications - Current Medications Current Medications: Generic Name Dose Route Start Last Admin Trade Name Freq PRN Reason Stop Dose Admin Acetaminophen 650 mg 06/29/21 20:44 Acetaminophen 325 Mg Tab PO Q4H PRN Pain MILD(1-3)/Fever >100.5/GERONIMO Albuterol 1 mg 06/30/21 12:00 Albuterol 2.5 Mg/3 Ml Nebu IH Q3H PRN Wheezing Albuterol/Ipratropium 1 ampul 06/30/21 08:00 06/30/21 16:45 Ipratropium/Albuterol Sulfate 3 Ml Ampul.Neb IH 1 ampul QIDRT GARCIA Administration Citalopram Hydrobromide 10 mg 07/01/21 10:00 Citalopram 10 Mg Tab PO DAILY GARCIA Famotidine 20 mg 06/29/21 22:00 06/30/21 10:05 Famotidine 20 Mg/2 Ml Inj IV 20 mg BID GARCIA Administration Fentanyl 50 mcg 06/29/21 15:48 Fentanyl 100 Mcg/2 Ml Inj IV Q10MIN PRN ANALGESIA Heparin Sodium (Porcine) 5,000 unit 06/29/21 22:00 06/30/21 10:05 Heparin 5,000 Unit/1 Ml Vial SUB-Q 5,000 unit Q12HR GARCIA Administration Hydralazine HCl 10 mg 06/30/21 19:00 Hydralazine 20 Mg/1 Ml Inj IV Q4HR PRN Hypertension MIDAZOLAM/NS Drip 100mg/100ml 100 mg in 100 mls @ 1 mls/hr 06/29/21 14:00 06/30/21 12:45 Midazolam/Ns Drip 100mg/100ml IV 0 mg/hr TITR GARCIA 0 mls/hr Titration Protocol 1 MG/HR Fentanyl Citrate 2,000 mcg in 100 mls @ 2.948 mls/hr 06/29/21 16:00 06/30/21 10:15 Fentanyl Drip Premix IV 0 mcg/kg/hr TITR GARCIA 0 mls/hr Titration Protocol 1 MCG/KG/HR Dextrose 1,000 mls @ 100 mls/hr 06/30/21 08:00 D5w IV DIRECT GARCIA Methylprednisolone Sodium Succinate 40 mg 06/29/21 22:00 06/30/21 14:00 Methylprednisolone Sod Succinate 125 Mg/2 Ml Inj IV 40 mg Q8HR GARCIA Administration Metoclopramide HCl 10 mg 06/29/21 20:44 Metoclopramide 10 Mg/2 Ml Inj IV Q6H PRN Nausea And Vomiting Morphine Sulfate 2 mg 06/29/21 20:44 Morphine 2 Mg/1 Ml Inj IV Q4H PRN Pain, Moderate (4-6) Ondansetron HCl 4 mg 06/29/21 20:44 Ondansetron 4 Mg/2 Ml Inj IV Q3H PRN Nausea And Vomiting Sodium Chloride 10 ml 06/29/21 22:00 06/30/21 10:08 Sodium Chloride 0.9% 10 Ml Flush Syringe IV 10 ml BID GARCIA Administration Sodium Chloride 10 ml 06/29/21 20:44 Sodium Chloride 0.9% 10 Ml Flush Syringe IV PRN PRN LINE FLUSH Vancomycin HCl 125 mg 06/30/21 12:00 06/30/21 18:35 Vancomycin 250 Mg/10 Ml Oral Liqd PO 125 mg Q6HR GARCIA Administration Protocol Nutrition/Malnutrition Assess - Dietary Evaluation Nutrition/Malnutrition Findings: Nutrition Notes Start: 06/30/21 11:20 Freq: Status: Active Protocol: Document 06/30/21 11:20 ARNALDO (Rec: 06/30/21 11:54 ARNALDO [id number]) Nutrition Notes Need for Assessment generated from: MD Order,trimmer press clippings,MST Initial or Follow up Assessment Current Diagnosis Sepsis,Respiratory Failure Other Pertinent Diagnosis Metabolic Encephalopathy, Hypernatremia, Fibromyalgia. Current Diet NPO. Labs/Tests 06/30: Na 156, Cl 123.6, CO2 19, Glu 126, Ca 7.3. Pertinent Medications 06/30: Nutritionally unremarkable. Height 5 ft 5 in Weight 53.5 kg [place] Body Weight (kg) 56.81 BMI 19.6 Intake Prior to Admission Good Weight change and time frame Pt states being unsure if loss body weight ALCOHOL RUBBER. Weight Status Appropriate Subjective/Other Information RD consult for risk of malnutrition and need for dietary supplementation assessments. Pt currenty on NPO. Pt is on Mechanical Ventilation, O2 saturation @ 100%, according to Physical Assessment History notes. STE[employer]ING [employer]INET TENDER note on 06/29/21 13:51: Received order to evaluate. Patient is currently intubated . Unable to assess. Will discharge from this service at this time. Pt shows no signs of concern for risk of malnutrition at the time, according to Physical Assessment History notes. Pt cannot take ONS at the time , will not prescribe them; however, I will prescribe TF to be ordered when pertinent. Percent of energy/protein needs met: Pt currenty on NPO. Prescribed TF-Vital AF 1.2 [place]es[place] @ 55 ml/hr provides for energy/protein needs (1,575 Kcal/98 g) during LOS, 101% Kcal; 100% AA. Burn Absent Trauma Absent GI Symptoms Diarrhea Difficulty In Swallowing Food Allergy No Skin Integrity/Comment Assessment WNL. Current % PO Other Minimum of two criteria No #1 Nutrition Diagnosis Inadequate oral intake Etiology Pt is on Mechanical Ventilatioin. As Evidenced by Signs and Symptoms Pt is currently on NPO. Is patient on ventilator? Yes Is Patient Ambulatory and/or Out of Bed No REE-([facility]-confined to bed) 1314.456 Kcal/Kg value to use for calculation 29 Approximate Energy Requirements Using 1552 kcal/Kg Calculation Used for Recommendations Kcal/kg Additional Notes Protein: 1.2-2 g/Kg ABW; 66- 110 g/day. Fluids: 1 ml/Kcal, or as per MD. Nutrition Intervention Nutrition Support: When pertinent, start TF-Vital AF 1.2 Joesph @ 55 ml/hr. Flush: 80 ml water Q 4 hr, or as per MD. Kcal 1,575 Protein (gm) 98 Carbohydrates (gm) 145 Fat (gm) 71 Fluid (mL) 1,064 Fiber (gm) 7 % RDI: 101% Kcal; 100% AA. Goal #1 Provide at least 75% of energy /protein needs through Enteral Feeding during LOS. Goal #2 Maintain body weight within +/ -3% of admission body weight during LOS. Follow-Up By: 07/01/21 Additional Comments When pertinent, start monitoring TF tolerance and BM .
[2021-06-30] MEDS ORDERED: VANCOMYCIN/NS 1 GM/250 ML 1 GM/250 ML BAG IV SCH (22:00)
--- NOTE | 2021-06-30 22:02 | XRay Report ---
ABDOMEN 1 VIEW INDICATION / CLINICAL INFORMATION: NG Tube Placement (dobhoff). COMPARISON: CT from 06/29/2021 FINDINGS: Weighted tip enteric catheter terminates over the gastric body. Signer Name: Devin Lucas MD Signed: 06/30/2021 9:57 PM Workstation Name: [id number]
[2021-06-30] MEDS: MORPHINE 2 MG/1 ML INJ IV PRN (22:11)
[2021-07-01 04:57] LABS: Hematocrit 27.1 % (30.3-42.9); Mean Corpuscular HGB Conc 33 % (30-34); Mean Corpuscular Volume 104 fl (79-97); Platelet Count 261 K/mm3 (140-440); Red Cell Distribution Width 16.3 % (13.2-15.2)
[2021-07-01 05:17] LABS: Blood Urea Nitrogen 14 mg/dL (7-17); Calcium 8.2 mg/dL (8.4-10.2); Hemolysis Index 6
[2021-07-01 05:30] LABS: BUN/Creatinine Ratio 20
[2021-07-01] MEDS: methylPREDNISolone Sod Succinate 125 MG/2 ML INJ IV SCH ×3 (05:54→22:12)
[2021-07-01] MEDS: hydrALAZINE 20 MG/1 ML INJ IV PRN ×2 (05:54→12:43)
[2021-07-01] MEDS: DEXTROSE 5% IN WATER 1,000 ML IV SCH (05:55)
[2021-07-01] MEDS: VANCOMYCIN 250 MG/10 ML ORAL LIQD PO SCH ×4 (05:55→23:41)
[2021-07-01] MEDS: IPRATROPIUM/ALBUTEROL SULFATE 3 ML AMPUL.NEB IH SCH ×2 (08:40→12:33)
[2021-07-01] MEDS: CITALOPRAM 10 MG TAB PO SCH (09:42)
[2021-07-01] MEDS: FAMOTIDINE 20 MG/2 ML INJ IV SCH (09:42)
[2021-07-01] MEDS: HEPARIN 5,000 UNIT/1 ML VIAL SUB-Q SCH ×2 (09:42→22:26)
--- NOTE | 2021-07-01 11:09 | Vascular Lab Report ---
DUPLEX DOPPLER LOWER EXTREMITY VEINS, BILATERAL INDICATION / CLINICAL INFORMATION: r/o dvt. Sepsis, respiratory failure. TECHNIQUE: Duplex doppler imaging was performed through the veins of both lower extremities using venous esau tiburcio and other maneuvers. COMPARISON: None available. FINDINGS: RIGHT COMMON FEMORAL VEIN: Negative. RIGHT FEMORAL VEIN: Negative. RIGHT POPLITEAL VEIN: Negative. RIGHT CALF VEINS: Negative. LEFT COMMON FEMORAL VEIN: Negative. LEFT FEMORAL VEIN: Negative. LEFT POPLITEAL VEIN: Negative. LEFT CALF VEINS: Negative. ADDITIONAL FINDINGS: None. IMPRESSION: 1. No sonographic evidence for DVT in either lower extremity. Signer Name: Chung Perkins MD Signed: 07/01/2021 11:04 AM Workstation Name: [id number]
--- NOTE | 2021-07-01 11:53 | Consultation ---
History of Present Illness Consult date: 07/01/21 Reason for consult: other (Altered mental status) History of present illness: 65-year-old female with history of fibromyalgia on muscle relaxers was brought to the emergency room with altered mental status and low oxygen saturation. Per EMS saturation over 50% but improved 100% nonrebreather mask. Patient was intubated and was mechanically ventilated. Found to have benzodiazepine and urine. Patient is unable to provide any history all the history has been obtained from the chart. Patient was awaken after the admission and was successfully extubated yesterday. Patient now awake but slightly confused off oxygen on room air and fairly comfortable. Patient also noted to have diarrhea and currently being checked for C. difficile colitis in addition she is found to be hyponatremic and somewhat malnourished Past History Past Medical History: other (No known past medical history) Past Surgical History: Other (No known surgical history) Social history: other (Unknown) Family history: other (Unknown patient unable to provide history) Medications and Allergies Allergies Allergy/AdvReac Type Severity Reaction Status Date / Time acetaminophen AdvReac Rash Verified 06/20/13 14:56 [From Darvocet-N 100] celecoxib [From Celebrex] AdvReac Unknown Verified 06/20/13 14:56 fluoxetine HCl [From Prozac] AdvReac Rash Verified 06/20/13 14:56 propoxyphene napsylate AdvReac Rash Verified 06/20/13 14:56 [From Darvocet-N 100] Home Medications Medication Instructions Recorded Confirmed Last Taken Type Citalopram [celeXA] 10 mg PO DAILY 06/20/13 06/20/13 Unknown History Oxycodone HCl/Acetaminophen 1 each PO Q6HR PRN #20 tablet 06/20/13 Unknown Rx [Percocet 10-325 mg] Pregabalin [Lyrica] 100 mg PO DAILY 06/20/13 06/20/13 Unknown History methOCARBAMOL [Robaxin] 750 mg PO Q8H 06/20/13 06/20/13 Unknown History oxyCODONE /ACETAMINOPHEN [Percocet 1 tab PO Q4H PRN 06/20/13 06/20/13 Unknown History 5/325 mg] EPINEPHrine (NF) [Epipen (Nf)] 0.3 mg IM ONCE PRN #1 syringekit 06/18/16 Unknown Rx Famotidine [Pepcid] 20 mg PO BID #20 tablet 06/18/16 Unknown Rx diphenhydrAMINE [Benadryl CAP] 25 mg PO Q8HR PRN #30 capsule 06/18/16 Unknown Rx predniSONE [Deltasone] 40 mg PO QDAY #10 tab 06/18/16 Unknown Rx methocarbamoL [Robaxin-750] 750 mg PO Q8H PRN #20 tablet 01/17/18 Unknown Rx Active Meds: Active Medications Acetaminophen (Acetaminophen 325 Mg Tab) 650 mg PO Q4H PRN PRN Reason: Pain MILD(1-3)/Fever >100.5/GERONIMO Albuterol (Albuterol 2.5 Mg/3 Ml Nebu) 1 mg IH Q3H PRN PRN Reason: Wheezing Albuterol/Ipratropium (Ipratropium/Albuterol Sulfate 3 Ml Ampul.Neb) 1 ampul IH QIDRT GARCIA Last Admin: 07/01/21 08:40 Dose: 1 ampul Citalopram Hydrobromide (Citalopram 10 Mg Tab) 10 mg PO DAILY [facility] Last Admin: 07/01/21 09:42 Dose: 10 mg Famotidine (Famotidine 20 Mg Tab) 20 mg PO BID GARCIA Fentanyl (Fentanyl 100 Mcg/2 Ml Inj) 50 mcg IV Q10MIN PRN PRN Reason: ANALGESIA Heparin Sodium (Porcine) (Heparin 5,000 Unit/1 Ml Vial) 5,000 unit SUB-Q Q12HR GARCIA Last Admin: 07/01/21 09:42 Dose: 5,000 unit Hydralazine HCl (Hydralazine 20 Mg/1 Ml Inj) 10 mg IV Q4HR PRN PRN Reason: Hypertension Last Admin: 07/01/21 05:54 Dose: 10 mg MIDAZOLAM/NS Drip 100mg/100ml (Midazolam/Ns Drip 100mg/100ml) 100 mg in 100 mls @ 1 mls/hr IV TITR GARCIA; Protocol Last Titration: 06/30/21 12:45 Dose: 0 mg/hr, 0 mls/hr Fentanyl Citrate (Fentanyl Drip Premix) 2,000 mcg in 100 mls @ 2.948 mls/hr IV TITR GARCIA; Protocol Last Titration: 06/30/21 10:15 Dose: 0 mcg/kg/hr, 0 mls/hr Dextrose (D5w) 1,000 mls @ 100 mls/hr IV DIRECT GARCIA Last Admin: 07/01/21 05:55 Dose: 100 mls/hr Methylprednisolone Sodium Succinate (Methylprednisolone Sod Succinate 125 Mg/2 Ml Inj) 40 mg IV Q8HR GARCIA Last Admin: 07/01/21 05:54 Dose: 40 mg Metoclopramide HCl (Metoclopramide 10 Mg/2 Ml Inj) 10 mg IV Q6H PRN PRN Reason: Nausea And Vomiting Morphine Sulfate (Morphine 2 Mg/1 Ml Inj) 2 mg IV Q4H PRN PRN Reason: Pain, Moderate (4-6) Last Admin: 06/30/21 22:11 Dose: 2 mg Ondansetron HCl (Ondansetron 4 Mg/2 Ml Inj) 4 mg IV Q3H PRN PRN Reason: Nausea And Vomiting Sodium Chloride (Sodium Chloride 0.9% 10 Ml Flush Syringe) 10 ml IV BID GARCIA Last Admin: 07/01/21 09:43 Dose: 10 ml Sodium Chloride (Sodium Chloride 0.9% 10 Ml Flush Syringe) 10 ml IV PRN PRN PRN Reason: LINE FLUSH Vancomycin HCl (Vancomycin 250 Mg/10 Ml Oral Liqd) 125 mg PO Q6HR [facility]; Protocol Last Admin: 07/01/21 05:55 Dose: 125 mg Review of Systems ROS unobtainable: due to mental status Physical Examination Vital signs: Vital Signs Pulse BP Pulse Ox 122 H 170/86 100 06/29/21 12:45 06/29/21 12:45 06/29/21 12:45 General appearance: no acute distress, other (Awake and responsive mildly confused) ENT: oropharynx dry Neck: supple, no JVD Ascultation: Bilateral: clear Cardiovascular: regular rate and rhythm Gastrointestinal: normoactive bowel sounds, soft, non-tender Extremities: no cyanosis, no edema other (Mildly confused) other (Mild confusion) Results - Laboratory Findings CBC and BMP: 07/01/21 04:32 07/01/21 04:32 ABG ABG pH 7.405 pH Units (7.350-7.450) 06/30/21 10:33 ABG pCO2 31.0 mm Hg 06/30/21 10:33 ABG pO2 100.0 mm Hg (80.0-90.0) H 06/30/21 10:33 ABG O2 Saturation 97.7 % (95.0-99.0) 06/30/21 10:33 PT/INR, D-dimer PT 14.2 Sec. (12.2-14.9) 06/29/21 13:40 INR 0.99 (0.87-1.13) 06/29/21 13:40 D-Dimer 1121.59 ng/mlDDU (0-234) H 06/30/21 08:16 Abnormal lab findings: Abnormal Labs 06/29/21 06/29/21 06/29/21 13:40 13:40 13:40 WBC RBC 2.47 L Hgb 8.5 L Hct 26.0 L MCV 105 H MCH 34 H RDW 16.4 H Lymph % (Auto) Lymph # (Auto) Seg Neutrophils % Seg Neuts % (Manual) 90.0 H Lymphocytes % (Manual) 5.0 L Nucleated RBC % 1.0 H Lymphocytes # (Manual) 0.3 L D-Dimer ABG pH ABG pO2 ABG HCO3 ABG O2 Saturation ABG Base Excess ABG Hemoglobin Sodium Potassium Chloride Carbon Dioxide Glucose POC Glucose Lactic Acid 2.80 H* Calcium Magnesium Ferritin AST 65 H Alkaline Phosphatase 153 H Lactate Dehydrogenase C-Reactive Protein Total Protein 6.2 L 06/29/21 06/29/21 06/29/21 13:40 14:20 18:05 WBC RBC Hgb Hct MCV MCH RDW Lymph % (Auto) Lymph # (Auto) Seg Neutrophils % Seg Neuts % (Manual) Lymphocytes % (Manual) Nucleated RBC % Lymphocytes # (Manual) D-Dimer ABG pH 7.164 L* 7.346 L ABG pO2 477.1 H 100.0 H ABG HCO3 27.4 H ABG O2 Saturation 99.6 H ABG Base Excess -3.3 L ABG Hemoglobin 9.1 L 8.5 L Sodium 149 H Potassium 3.5 L Chloride 112.8 H Carbon Dioxide Glucose 144 H POC Glucose Lactic Acid Calcium 7.7 L Magnesium Ferritin AST Alkaline Phosphatase Lactate Dehydrogenase C-Reactive Protein Total Protein 06/30/21 06/30/21 06/30/21 04:08 04:56 04:56 WBC 4.2 L RBC 2.44 L Hgb 8.4 L Hct 25.2 L MCV 104 H MCH 35 H RDW 16.0 H Lymph % (Auto) 8.1 L Lymph # (Auto) 0.3 L Seg Neutrophils % 88.4 H Seg Neuts % (Manual) Lymphocytes % (Manual) Nucleated RBC % Lymphocytes # (Manual) D-Dimer ABG pH 7.474 H ABG pO2 152.3 H ABG HCO3 ABG O2 Saturation ABG Base Excess -2.6 L ABG Hemoglobin 8.1 L Sodium 156 H Potassium Chloride 123.6 H Carbon Dioxide 19 L Glucose 126 H POC Glucose Lactic Acid Calcium 7.3 L Magnesium Ferritin AST Alkaline Phosphatase Lactate Dehydrogenase C-Reactive Protein Total Protein 5.9 L 06/30/21 06/30/21 06/30/21 08:16 08:16 08:16 WBC RBC Hgb Hct MCV MCH RDW Lymph % (Auto) Lymph # (Auto) Seg Neutrophils % Seg Neuts % (Manual) Lymphocytes % (Manual) Nucleated RBC % Lymphocytes # (Manual) D-Dimer 1121.59 H ABG pH ABG pO2 ABG HCO3 ABG O2 Saturation ABG Base Excess ABG Hemoglobin Sodium Potassium Chloride Carbon Dioxide Glucose POC Glucose Lactic Acid Calcium Magnesium Ferritin 224.7 H AST Alkaline Phosphatase Lactate Dehydrogenase 312 H C-Reactive Protein 12.00 H Total Protein 06/30/21 06/30/21 06/30/21 10:33 11:08 16:35 WBC RBC Hgb Hct MCV MCH RDW Lymph % (Auto) Lymph # (Auto) Seg Neutrophils % Seg Neuts % (Manual) Lymphocytes % (Manual) Nucleated RBC % Lymphocytes # (Manual) D-Dimer ABG pH ABG pO2 100.0 H ABG HCO3 19.0 L ABG O2 Saturation ABG Base Excess -5.0 L ABG Hemoglobin 8.8 L Sodium Potassium Chloride Carbon Dioxide Glucose POC Glucose 117 H 111 H Lactic Acid Calcium Magnesium Ferritin AST Alkaline Phosphatase Lactate Dehydrogenase C-Reactive Protein Total Protein 07/01/21 07/01/21 07/01/21 00:08 04:32 04:32 WBC RBC 2.60 L Hgb 9.0 L Hct 27.1 L MCV 104 H MCH 35 H RDW 16.3 H Lymph % (Auto) Lymph # (Auto) Seg Neutrophils % Seg Neuts % (Manual) Lymphocytes % (Manual) Nucleated RBC % Lymphocytes # (Manual) D-Dimer ABG pH ABG pO2 ABG HCO3 ABG O2 Saturation ABG Base Excess ABG Hemoglobin Sodium 155 H Potassium Chloride 120.4 H Carbon Dioxide Glucose 132 H POC Glucose 129 H Lactic Acid Calcium 8.2 L Magnesium 2.40 H Ferritin AST Alkaline Phosphatase Lactate Dehydrogenase C-Reactive Protein Total Protein 07/01/21 05:48 WBC RBC Hgb Hct MCV MCH RDW Lymph % (Auto) Lymph # (Auto) Seg Neutrophils % Seg Neuts % (Manual) Lymphocytes % (Manual) Nucleated RBC % Lymphocytes # (Manual) D-Dimer ABG pH ABG pO2 ABG HCO3 ABG O2 Saturation ABG Base Excess ABG Hemoglobin Sodium Potassium Chloride Carbon Dioxide Glucose POC Glucose 116 H Lactic Acid Calcium Magnesium Ferritin AST Alkaline Phosphatase Lactate Dehydrogenase C-Reactive Protein Total Protein - Diagnostic Findings Chest x-ray: image reviewed (Unremarkable ET tube in good position) Assessment and Plan Impression: Acute hypoxic hypercapnic respiratory failure Possible benzodiazepine overdose Suspect chronic pain syndrome Hyponatremia/dehydration Diarrhea possible possible colitis, rule out C. difficile colitis Malnutrition Recommendation: Patient has been successfully extubated and currently on room air. Increase free water intake and D5W infusion for hyponatremia. Work-up for C. difficile colitis as planned. Can be transferred out of ICU. Critical care time 31-minute
[2021-07-01] MEDS: FAMOTIDINE 20 MG TAB PO SCH ×2 (12:26→22:11)
--- NOTE | 2021-07-01 15:35 | Progress Note ---
<JANINA PRUITTUte - Last Filed: 07/01/21 15:30> Assessment and Plan Assessment and plan: This is a 65-year-old female with fibromyalgia admitted with acute hypoxic respiratory failure and colitis Neuro: Acute metabolic encephalopathy, h/o fibromyalgia, ? depression -UDS positive for benzodiazepines -Avoid delirium -Reorientation as needed -Maintain sleep-wake cycle -As needed analgesia -CT head shows no acute intracranial abnormality -Resume Celexa Cardiac: h/o ? HTN -Blood pressure monitoring per protocol -Hydralazine PRN -Please update home meds Respiratory: Acute hypoxic respiratory failure (resolved) -CCM consulted, appreciate recommendations -Intubated on 06/29 with 7.50 ETT at 22 cm for airway protection but extubated 06/30 to CO -pulmanory hygenie -SPO2 monitoring GI: Mild protein calorie malnutrition -24 hours -1381 mL -PPI -Pureed diet : Hypernatremia, hyperchloremia metabolic acidosis -D5W drip -Strict intake and output -Renally dose medications -Avoid nephrotoxic medications -Trend BMP ID: Colitis, r/o C diff -Antibiotic therapy with PO vanc -CT a/p shows diffuse wall thickening and edema in the colon suggesting colitis without obstruction or free air -Contact precaution -COVID-19 PCR negative -C diff pending -f/u blood culture -Monitor WBC and temperature curve Endo: NAD -Avoid hypoglycemia -SSI -Accu-Cheks q. 6 Heme: Elevated D-dimer, leukopenia (resolved) -CTA chest shows no evidence of pulmonary embolism -Bilateral lower extremity Doppler ultrasound negative for DVT -Trend CBC -Transfuse hemoglobin less than 7 -Heparin subcu -Monitor for signs of bleeding -SCDs to BLE while in bed The high probability of a clinically significant, sudden or life threatening deterioration of the [resp] system(s) required my full and direct attention, intervention and personal management. The aggregate critical care time was [60] minutes. 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 Per EMS initial saturation were 50% which improved to 100% with NRB. In the emergency room patient was obtunded with SpO2 of 75% and due to persistent hypoxia patient was intubated in the emergency department. Patient was admitted to the hospital service with acute hypoxic respiratory failure and initiated sepsis protocol with consults to CCM. Hospital course to date: 06/30: COVID-19 PCR negative, patient reported to have copious diarrhea with colitis on CT abdomen/pelvis and was started on p.o. vancomycin with a sample sent on for C. difficile. Patient was on minimal vent settings and sedated on fentanyl and Versed. Patient and Versed weaned off and patient was eventually extubated this afternoon. Her UDS was positive for benzodiazepines. We will continue D5W for hypernatremia. CTA was negative for PE but will order bilateral Doppler ultrasounds for elevated D-dimer. 07/01: Cdiff pending but RN reports no further diarrhea. Weaned to RA, flat affect, soft diet ordered. transfer to the floor. Continue D5 and monitor Na. Hospitalist Physical - Constitutional Vitals: Temp Pulse Resp BP Pulse Ox 98.7 F 103 H 22 173/87 96 07/01/21 14:15 07/01/21 14:16 07/01/21 14:15 07/01/21 14:15 07/01/21 14:16 General appearance: Present: no acute distress, cachectic - EENT Eyes: Present: PERRL, EOM intact ENT: hearing intact, clear oral mucosa, poor dentition - Neck Neck: Present: normal ROM - Respiratory Respiratory effort: normal Respiratory: bilateral: CTA - Cardiovascular Rhythm: regular Heart Sounds: Present: S1 & S2. Absent: systolic murmur, diastolic murmur - Extremities Extremities: no ischemia, pulses intact, pulses symmetrical, No edema, normal temperature, normal color, Full ROM Peripheral Pulses: within normal limits - Abdominal General gastrointestinal: soft, non-tender, non-distended, normal bowel sounds - Integumentary Integumentary: Present: warm, dry - Psychiatric Psychiatric: cooperative, depressed - Neurologic Neurologic: CNII-XII intact, moves all extremities - Allied Health Allied health notes reviewed: nursing, RT, social work HEART Score - HEART Score Troponin: Troponin T < 0.010 ng/mL (0.00-0.029) 06/29/21 13:40 Results - Labs CBC & Chem 7: 07/01/21 04:32 07/01/21 04:32 Labs: Laboratory Last Values WBC 6.5 K/mm3 (4.5-11.0) 07/01/21 04:32 RBC 2.60 M/mm3 (3.65-5.03) L 07/01/21 04:32 Hgb 9.0 gm/dl (10.1-14.3) L 07/01/21 04:32 Hct 27.1 % (30.3-42.9) L 07/01/21 04:32 MCV 104 fl (79-97) H 07/01/21 04:32 MCH 35 pg (28-32) H 07/01/21 04:32 MCHC 33 % (30-34) 07/01/21 04:32 RDW 16.3 % (13.2-15.2) H 07/01/21 04:32 Plt Count 261 K/mm3 (140-440) 07/01/21 04:32 Lymph % (Auto) 8.1 % (13.4-35.0) L 06/30/21 04:56 Henry % (Auto) 3.4 % (0.0-7.3) 06/30/21 04:56 Eos % (Auto) 0.0 % (0.0-4.3) 06/30/21 04:56 Baso % (Auto) 0.1 % (0.0-1.8) 06/30/21 04:56 Lymph # (Auto) 0.3 K/mm3 (1.2-5.4) L 06/30/21 04:56 Henry # (Auto) 0.1 K/mm3 (0.0-0.8) 06/30/21 04:56 Eos # (Auto) 0.0 K/mm3 (0.0-0.4) 06/30/21 04:56 Baso # (Auto) 0.0 K/mm3 (0.0-0.1) 06/30/21 04:56 Add Manual Diff Complete 06/29/21 13:40 Total Counted 100 06/29/21 13:40 Seg Neutrophils % 88.4 % (40.0-70.0) H 06/30/21 04:56 Seg Neuts % (Manual) 90.0 % (40.0-70.0) H 06/29/21 13:40 Band Neutrophils % 2.0 % 06/29/21 13:40 Lymphocytes % (Manual) 5.0 % (13.4-35.0) L 06/29/21 13:40 Reactive Lymphs % (Man) 0 % 06/29/21 13:40 Monocytes % (Manual) 2.0 % (0.0-7.3) 06/29/21 13:40 Eosinophils % (Manual) 0 % (0.0-4.3) 06/29/21 13:40 Basophils % (Manual) 1.0 % (0.0-1.8) 06/29/21 13:40 Metamyelocytes % 0 % 06/29/21 13:40 Myelocytes % 0 % 06/29/21 13:40 Promyelocytes % 0 % 06/29/21 13:40 Blast Cells % 0 % 06/29/21 13:40 Nucleated RBC % 1.0 % (0.0-0.9) H 06/29/21 13:40 Seg Neutrophils # 3.7 K/mm3 (1.8-7.7) 06/30/21 04:56 Seg Neutrophils # Man 5.3 K/mm3 (1.8-7.7) 06/29/21 13:40 Band Neutrophils # 0.1 K/mm3 06/29/21 13:40 Lymphocytes # (Manual) 0.3 K/mm3 (1.2-5.4) L 06/29/21 13:40 Abs React Lymphs (Man) 0.0 K/mm3 06/29/21 13:40 Monocytes # (Manual) 0.1 K/mm3 (0.0-0.8) 06/29/21 13:40 Eosinophils # (Manual) 0.0 K/mm3 (0.0-0.4) 06/29/21 13:40 Basophils # (Manual) 0.1 K/mm3 (0.0-0.1) 06/29/21 13:40 Metamyelocytes # 0.0 K/mm3 06/29/21 13:40 Myelocytes # 0.0 K/mm3 06/29/21 13:40 Promyelocytes # 0.0 K/mm3 06/29/21 13:40 Blast Cells # 0.0 K/mm3 06/29/21 13:40 WBC Morphology Not Reportable 06/29/21 13:40 Hypersegmented Neuts Not Reportable 06/29/21 13:40 Hyposegmented Neuts 1+ 06/29/21 13:40 Hypogranular Neuts Not Reportable 06/29/21 13:40 Smudge Cells Not Reportable 06/29/21 13:40 Toxic Granulation Not Reportable 06/29/21 13:40 Toxic Vacuolation Not Reportable 06/29/21 13:40 Dohle Bodies Not Reportable 06/29/21 13:40 Pelger-Huet Anomaly Not Reportable 06/29/21 13:40 Zain Rods Not Reportable 06/29/21 13:40 Platelet Estimate Consistent w auto 06/29/21 13:40 Clumped Platelets Not Reportable 06/29/21 13:40 Plt Clumps, EDTA Not Reportable 06/29/21 13:40 Large Platelets Not Reportable 06/29/21 13:40 Giant Platelets Not Reportable 06/29/21 13:40 Platelet Satelliting Not Reportable 06/29/21 13:40 Plt Morphology Comment Not Reportable 06/29/21 13:40 RBC Morphology Not Reportable 06/29/21 13:40 Dimorphic RBCs Not Reportable 06/29/21 13:40 Polychromasia Not Reportable 06/29/21 13:40 Hypochromasia 1+ 06/29/21 13:40 Poikilocytosis Few 06/29/21 13:40 Anisocytosis 1+ 06/29/21 13:40 Microcytosis 1+ 06/29/21 13:40 Macrocytosis Not Reportable 06/29/21 13:40 Spherocytes Not Reportable 06/29/21 13:40 Pappenheimer Bodies Not Reportable 06/29/21 13:40 Sickle Cells Not Reportable 06/29/21 13:40 Target Cells Rare 06/29/21 13:40 Tear Drop Cells Rare 06/29/21 13:40 Ovalocytes Not Reportable 06/29/21 13:40 Stomatocytes Rare 06/29/21 13:40 Helmet Cells Not Reportable 06/29/21 13:40 [place] Bodies Not Reportable 06/29/21 13:40 Jackson Rings Not Reportable 06/29/21 13:40 Paulette Cells Not Reportable 06/29/21 13:40 Bite Cells Not Reportable 06/29/21 13:40 Crenated Cell Not Reportable 06/29/21 13:40 Elliptocytes Not Reportable 06/29/21 13:40 Acanthocytes (Spur) Not Reportable 06/29/21 13:40 Rouleaux Not Reportable 06/29/21 13:40 Hemoglobin C Crystals Not Reportable 06/29/21 13:40 Schistocytes Not Reportable 06/29/21 13:40 Malaria parasites Not Reportable 06/29/21 13:40 Luis Bodies Not Reportable 06/29/21 13:40 Hem Pathologist Commnt No 06/29/21 13:40 PT 14.2 Sec. (12.2-14.9) 06/29/21 13:40 INR 0.99 (0.87-1.13) 06/29/21 13:40 APTT 36.0 Sec. (24.2-36.6) 06/29/21 13:40 D-Dimer 1121.59 ng/mlDDU (0-234) H 06/30/21 08:16 ABG pH 7.405 pH Units (7.350-7.450) 06/30/21 10:33 ABG pCO2 31.0 mm Hg 06/30/21 10:33 ABG pO2 100.0 mm Hg (80.0-90.0) H 06/30/21 10:33 ABG HCO3 19.0 mmol/L (20.0-26.0) L 06/30/21 10:33 ABG O2 Saturation 97.7 % (95.0-99.0) 06/30/21 10:33 ABG O2 Content 12.0 (0.0-44) 06/30/21 10:33 ABG Base Excess -5.0 mmol/L (-2.0-3.0) L 06/30/21 10:33 ABG Hemoglobin 8.8 gm/dl (12.0-16.0) L 06/30/21 10:33 ABG Carboxyhemoglobin 1.1 % (0.0-5.0) 06/30/21 10:33 ABG Methemoglobin 0.3 % (0.0-1.5) 06/30/21 10:33 Oxyhemoglobin 96.3 % (95.0-99.0) 06/30/21 10:33 FiO2 30 % 06/30/21 10:33 Sodium 155 mmol/L (137-145) H 07/01/21 04:32 Potassium 4.1 mmol/L (3.6-5.0) 07/01/21 04:32 Chloride 120.4 mmol/L (98-107) H 07/01/21 04:32 Carbon Dioxide 22 mmol/L (22-30) 07/01/21 04:32 Anion Gap 17 mmol/L 07/01/21 04:32 BUN 14 mg/dL (7-17) 07/01/21 04:32 Creatinine 0.7 mg/dL (0.6-1.2) 07/01/21 04:32 Estimated GFR > 60 ml/min 07/01/21 04:32 BUN/Creatinine Ratio 20 % 07/01/21 04:32 Glucose 132 mg/dL (65-100) H 07/01/21 04:32 POC Glucose 120 mg/dL (70-105) H 07/01/21 11:20 Lactic Acid 1.30 mmol/L (0.7-2.0) 06/30/21 Unknown Calcium 8.2 mg/dL (8.4-10.2) L 07/01/21 04:32 Phosphorus 3.30 mg/dL (2.5-4.5) 07/01/21 04:32 Magnesium 2.40 mg/dL (1.7-2.3) H 07/01/21 04:32 Ferritin 224.7 ng/mL (10.0-200.0) H 06/30/21 08:16 Total Bilirubin 0.50 mg/dL (0.1-1.2) 06/30/21 04:56 Direct Bilirubin 0.2 mg/dL (0-0.2) 06/29/21 13:40 Indirect Bilirubin 0.6 mg/dL 06/29/21 13:40 AST 37 units/L (5-40) 06/30/21 04:56 ALT 18 units/L (7-56) 06/30/21 04:56 Alkaline Phosphatase 121 units/L (35-129) 06/30/21 04:56 Lactate Dehydrogenase 312 units/L (91-180) H 06/30/21 08:16 Troponin T < 0.010 ng/mL (0.00-0.029) 06/29/21 13:40 C-Reactive Protein 12.00 mg/dL (0.00-1.30) H 06/30/21 08:16 NT-Pro-B Natriuret Pep 394.9 pg/mL (0-900) 06/29/21 13:40 Total Protein 5.9 g/dL (6.3-8.2) L 06/30/21 04:56 Albumin 3.9 g/dL (3.9-5) 06/30/21 04:56 Albumin/Globulin Ratio 2.0 % 06/30/21 04:56 Urine Color Colorless (Yellow) 06/29/21 13:01 Urine Turbidity Clear (Clear) 06/29/21 13:01 Urine pH 7.0 (5.0-7.0) 06/29/21 13:01 Ur Specific [place] 1.013 (1.003-1.030) 06/29/21 13:01 Urine Protein <15 mg/dl mg/dL (Negative) 06/29/21 13:01 Urine Glucose (UA) Neg mg/dL (Negative) 06/29/21 13:01 Urine Ketones Neg mg/dL (Negative) 06/29/21 13:01 Urine Blood Sm (Negative) 06/29/21 13:01 Urine Nitrite Neg (Negative) 06/29/21 13:01 Urine Bilirubin Neg (Negative) 06/29/21 13:01 Urine Urobilinogen < 2.0 mg/dL (<2.0) 06/29/21 13:01 Ur Leukocyte Esterase Neg (Negative) 06/29/21 13:01 Urine WBC (Auto) < 1.0 /HPF (0.0-6.0) 06/29/21 13:01 Urine RBC (Auto) < 1.0 /HPF (0.0-6.0) 06/29/21 13:01 Urine Opiates Screen Negative 06/29/21 Unknown Urine Methadone Screen Negative 06/29/21 Unknown Ur Barbiturates Screen Negative 06/29/21 Unknown Ur Phencyclidine Scrn Negative 06/29/21 Unknown Ur Amphetamines Screen Negative 06/29/21 Unknown U Benzodiazepines Scrn Positive 06/29/21 Unknown Urine Cocaine Screen Negative 06/29/21 Unknown U Marijuana (THC) Screen Negative 06/29/21 Unknown Drugs of Abuse Note Disclamer 06/29/21 Unknown Coronavirus (PCR) Negative (Negative) 06/30/21 Unknown Microbiology: Microbiology 06/29/21 13:40 Peripheral/Venous Blood Culture - Preliminary NO GROWTH AFTER 24 HOURS 06/29/21 14:08 Peripheral/Venous Blood Culture - Preliminary NO GROWTH AFTER 24 HOURS [place]/IV: Voiding Method Indwelling Catheter Active Medications - Current Medications Current Medications: Generic Name Dose Route Start Last Admin Trade Name Freq PRN Reason Stop Dose Admin Acetaminophen 650 mg 06/29/21 20:44 Acetaminophen 325 Mg Tab PO Q4H PRN Pain MILD(1-3)/Fever >100.5/GERONIMO Albuterol 1 mg 06/30/21 12:00 Albuterol 2.5 Mg/3 Ml Nebu IH Q3H PRN Wheezing Citalopram Hydrobromide 10 mg 07/01/21 10:00 07/01/21 09:42 Citalopram 10 Mg Tab PO 10 mg DAILY GARCIA Administration Famotidine 20 mg 07/01/21 11:00 07/01/21 12:26 Famotidine 20 Mg Tab PO Not Given BID GARCIA Heparin Sodium (Porcine) 5,000 unit 06/29/21 22:00 07/01/21 09:42 Heparin 5,000 Unit/1 Ml Vial SUB-Q 5,000 unit Q12HR GARCIA Administration Hydralazine HCl 10 mg 06/30/21 19:00 07/01/21 12:43 Hydralazine 20 Mg/1 Ml Inj IV 10 mg Q4HR PRN Administration Hypertension Dextrose 1,000 mls @ 100 mls/hr 06/30/21 08:00 07/01/21 05:55 D5w IV 100 mls/hr DIRECT GARCIA Administration Methylprednisolone Sodium Succinate 40 mg 06/29/21 22:00 07/01/21 14:13 Methylprednisolone Sod Succinate 125 Mg/2 Ml Inj IV 40 mg Q8HR GARCIA Administration Metoclopramide HCl 10 mg 06/29/21 20:44 Metoclopramide 10 Mg/2 Ml Inj IV Q6H PRN Nausea And Vomiting Morphine Sulfate 2 mg 06/29/21 20:44 06/30/21 22:11 Morphine 2 Mg/1 Ml Inj IV 2 mg Q4H PRN Administration Pain, Moderate (4-6) Ondansetron HCl 4 mg 05/04/22 20:44 Ondansetron 4 Mg/2 Ml Inj IV Q3H PRN Nausea And Vomiting Sodium Chloride 10 ml 06/29/21 22:00 07/01/21 09:43 Sodium Chloride 0.9% 10 Ml Flush Syringe IV 10 ml BID GARCIA Administration Sodium Chloride 10 ml 06/29/21 20:44 Sodium Chloride 0.9% 10 Ml Flush Syringe IV PRN PRN LINE FLUSH Vancomycin HCl 125 mg 06/30/21 12:00 07/01/21 12:40 Vancomycin 250 Mg/10 Ml Oral Liqd PO 125 mg Q6HR GARCIA Administration Protocol Nutrition/Malnutrition Assess - Dietary Evaluation Nutrition/Malnutrition Findings: Nutrition Notes Start: 06/30/21 11:20 Freq: Status: Active Protocol: Document 06/30/21 11:20 ARNALDO (Rec: 06/30/21 11:54 ARNALDO [id number]) Nutrition Notes Need for Assessment generated from: MD Order,search engine optimization strategist,MST Initial or Follow up Assessment Current Diagnosis Sepsis,Respiratory Failure Other Pertinent Diagnosis Metabolic Encephalopathy, Hypernatremia, Fibromyalgia. Current Diet NPO. Labs/Tests 06/30: Na 156, Cl 123.6, CO2 19, Glu 126, Ca 7.3. Pertinent Medications 06/30: Nutritionally unremarkable. 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 Weight Status Appropriate Subjective/Other Information RD consult for risk of malnutrition and need for dietary supplementation assessments. Pt currenty on NPO. Pt is on Mechanical Ventilation, O2 saturation @ 100%, according to Physical Assessment History notes. DIRECTOR OF PROPERTY MANAGEMENT note on 06/29/21 13:51: Received order to evaluate. Patient is currently intubated . Unable to assess. Will discharge from this service at this time. Pt shows no signs of concern for risk of malnutrition at the time, according to Physical Assessment History notes. Pt cannot take ONS at the time , will not prescribe them; however, I will prescribe TF to be ordered when pertinent. Percent of energy/protein needs met: Pt currenty on NPO. Prescribed TF-Vital AF 1.2 Joesph @ 55 ml/hr provides for energy/protein needs (1,575 Kcal/98 g) during LOS, 101% Kcal; 100% AA. Burn Absent Trauma Absent GI Symptoms Diarrhea Difficulty In Swallowing Food Allergy No Skin Integrity/Comment Assessment WNL. Current % PO Other Minimum of two criteria No #1 Nutrition Diagnosis Inadequate oral intake Etiology Pt is on Mechanical Ventilatioin. As Evidenced by Signs and Symptoms Pt is currently on NPO. Is patient on ventilator? Yes Is Patient Ambulatory and/or Out of Bed No REE-([facility]-confined to bed) 1314.456 Kcal/Kg value to use for calculation 29 Approximate Energy Requirements Using 1552 kcal/Kg Calculation Used for Recommendations Kcal/kg Additional Notes Protein: 1.2-2 g/Kg ABW; 66- 110 g/day. Fluids: 1 ml/Kcal, or as per MD. Nutrition Intervention Nutrition Support: When pertinent, start TF-Vital AF 1.2 Joesph @ 55 ml/hr. Flush: 80 ml water Q 4 hr, or as per MD. Kcal 1,575 Protein (gm) 98 Carbohydrates (gm) 145 Fat (gm) 71 Fluid (mL) 1,064 Fiber (gm) 7 % RDI: 101% Kcal; 100% AA. Goal #1 Provide at least 75% of energy /protein needs through Enteral Feeding during LOS. Goal #2 Maintain body weight within +/ -3% of admission body weight during LOS. Follow-Up By: 07/01/21 Additional Comments When pertinent, start monitoring TF tolerance and BM . <URIEL LOTT - Last Filed: 07/02/21 07:20> Assessment and Plan Assessment and plan: I saw and evaluated the patient. I agree with the findings and the plan of care as documented in the Nurse Practitioner's~note, with the following corrections and additions. Hospitalist Physical - Constitutional Vitals: Temp Pulse Resp BP Pulse Ox 98.2 F 84 18 171/93 96 07/02/21 05:31 07/02/21 05:31 07/02/21 05:31 07/02/21 05:31 07/02/21 05:31 HEART Score - HEART Score Troponin: Troponin T < 0.010 ng/mL (0.00-0.029) 06/29/21 13:40 Results - Labs CBC & Chem 7: 07/01/21 04:32 07/01/21 04:32 Labs: Laboratory Last Values WBC 6.5 K/mm3 (4.5-11.0) 07/01/21 04:32 RBC 2.60 M/mm3 (3.65-5.03) L 07/01/21 04:32 Hgb 9.0 gm/dl (10.1-14.3) L 07/01/21 04:32 Hct 27.1 % (30.3-42.9) L 07/01/21 04:32 MCV 104 fl (79-97) H 07/01/21 04:32 MCH 35 pg (28-32) H 07/01/21 04:32 MCHC 33 % (30-34) 07/01/21 04:32 RDW 16.3 % (13.2-15.2) H 07/01/21 04:32 Plt Count 261 K/mm3 (140-440) 07/01/21 04:32 Lymph % (Auto) 8.1 % (13.4-35.0) L 06/30/21 04:56 Henry % (Auto) 3.4 % (0.0-7.3) 06/30/21 04:56 Eos % (Auto) 0.0 % (0.0-4.3) 06/30/21 04:56 Baso % (Auto) 0.1 % (0.0-1.8) 06/30/21 04:56 Lymph # (Auto) 0.3 K/mm3 (1.2-5.4) L 06/30/21 04:56 Henry # (Auto) 0.1 K/mm3 (0.0-0.8) 06/30/21 04:56 Eos # (Auto) 0.0 K/mm3 (0.0-0.4) 06/30/21 04:56 Baso # (Auto) 0.0 K/mm3 (0.0-0.1) 06/30/21 04:56 Add Manual Diff Complete 06/29/21 13:40 Total Counted 100 06/29/21 13:40 Seg Neutrophils % 88.4 % (40.0-70.0) H 06/30/21 04:56 Seg Neuts % (Manual) 90.0 % (40.0-70.0) H 06/29/21 13:40 Band Neutrophils % 2.0 % 06/29/21 13:40 Lymphocytes % (Manual) 5.0 % (13.4-35.0) L 06/29/21 13:40 Reactive Lymphs % (Man) 0 % 06/29/21 13:40 Monocytes % (Manual) 2.0 % (0.0-7.3) 06/29/21 13:40 Eosinophils % (Manual) 0 % (0.0-4.3) 06/29/21 13:40 Basophils % (Manual) 1.0 % (0.0-1.8) 06/29/21 13:40 Metamyelocytes % 0 % 06/29/21 13:40 Myelocytes % 0 % 06/29/21 13:40 Promyelocytes % 0 % 06/29/21 13:40 Blast Cells % 0 % 06/29/21 13:40 Nucleated RBC % 1.0 % (0.0-0.9) H 06/29/21 13:40 Seg Neutrophils # 3.7 K/mm3 (1.8-7.7) 06/30/21 04:56 Seg Neutrophils # Man 5.3 K/mm3 (1.8-7.7) 06/29/21 13:40 Band Neutrophils # 0.1 K/mm3 06/29/21 13:40 Lymphocytes # (Manual) 0.3 K/mm3 (1.2-5.4) L 06/29/21 13:40 Abs React Lymphs (Man) 0.0 K/mm3 06/29/21 13:40 Monocytes # (Manual) 0.1 K/mm3 (0.0-0.8) 06/29/21 13:40 Eosinophils # (Manual) 0.0 K/mm3 (0.0-0.4) 06/29/21 13:40 Basophils # (Manual) 0.1 K/mm3 (0.0-0.1) 06/29/21 13:40 Metamyelocytes # 0.0 K/mm3 06/29/21 13:40 Myelocytes # 0.0 K/mm3 06/29/21 13:40 Promyelocytes # 0.0 K/mm3 06/29/21 13:40 Blast Cells # 0.0 K/mm3 06/29/21 13:40 WBC Morphology Not Reportable 06/29/21 13:40 Hypersegmented Neuts Not Reportable 06/29/21 13:40 Hyposegmented Neuts 1+ 06/29/21 13:40 Hypogranular Neuts Not Reportable 06/29/21 13:40 Smudge Cells Not Reportable 06/29/21 13:40 Toxic Granulation Not Reportable 06/29/21 13:40 Toxic Vacuolation Not Reportable 06/29/21 13:40 Dohle Bodies Not Reportable 06/29/21 13:40 Pelger-Huet Anomaly Not Reportable 06/29/21 13:40 Zain Rods Not Reportable 06/29/21 13:40 Platelet Estimate Consistent w auto 06/29/21 13:40 Clumped Platelets Not Reportable 06/29/21 13:40 Plt Clumps, EDTA Not Reportable 06/29/21 13:40 Large Platelets Not Reportable 06/29/21 13:40 Giant Platelets Not Reportable 06/29/21 13:40 Platelet Satelliting Not Reportable 06/29/21 13:40 Plt Morphology Comment Not Reportable 06/29/21 13:40 RBC Morphology Not Reportable 06/29/21 13:40 Dimorphic RBCs Not Reportable 06/29/21 13:40 Polychromasia Not Reportable 06/29/21 13:40 Hypochromasia 1+ 06/29/21 13:40 Poikilocytosis Few 06/29/21 13:40 Anisocytosis 1+ 06/29/21 13:40 Microcytosis 1+ 06/29/21 13:40 Macrocytosis Not Reportable 06/29/21 13:40 Spherocytes Not Reportable 06/29/21 13:40 Pappenheimer Bodies Not Reportable 06/29/21 13:40 Sickle Cells Not Reportable 06/29/21 13:40 Target Cells Rare 06/29/21 13:40 Tear Drop Cells Rare 06/29/21 13:40 Ovalocytes Not Reportable 06/29/21 13:40 Stomatocytes Rare 06/29/21 13:40 Helmet Cells Not Reportable 06/29/21 13:40 [place] Bodies Not Reportable 06/29/21 13:40 Jackson Rings Not Reportable 06/29/21 13:40 Paulette Cells Not Reportable 06/29/21 13:40 Bite Cells Not Reportable 06/29/21 13:40 Crenated Cell Not Reportable 06/29/21 13:40 Elliptocytes Not Reportable 06/29/21 13:40 Acanthocytes (Spur) Not Reportable 06/29/21 13:40 Rouleaux Not Reportable 06/29/21 13:40 Hemoglobin C Crystals Not Reportable 06/29/21 13:40 Schistocytes Not Reportable 06/29/21 13:40 Malaria parasites Not Reportable 06/29/21 13:40 Luis Bodies Not Reportable 06/29/21 13:40 Hem Pathologist Commnt No 06/29/21 13:40 PT 14.2 Sec. (12.2-14.9) 06/29/21 13:40 INR 0.99 (0.87-1.13) 06/29/21 13:40 APTT 36.0 Sec. (24.2-36.6) 06/29/21 13:40 D-Dimer 1121.59 ng/mlDDU (0-234) H 06/30/21 08:16 ABG pH 7.405 pH Units (7.350-7.450) 06/30/21 10:33 ABG pCO2 31.0 mm Hg 06/30/21 10:33 ABG pO2 100.0 mm Hg (80.0-90.0) H 06/30/21 10:33 ABG HCO3 19.0 mmol/L (20.0-26.0) L 06/30/21 10:33 ABG O2 Saturation 97.7 % (95.0-99.0) 06/30/21 10:33 ABG O2 Content 12.0 (0.0-44) 06/30/21 10:33 ABG Base Excess -5.0 mmol/L (-2.0-3.0) L 06/30/21 10:33 ABG Hemoglobin 8.8 gm/dl (12.0-16.0) L 06/30/21 10:33 ABG Carboxyhemoglobin 1.1 % (0.0-5.0) 06/30/21 10:33 ABG Methemoglobin 0.3 % (0.0-1.5) 06/30/21 10:33 Oxyhemoglobin 96.3 % (95.0-99.0) 06/30/21 10:33 FiO2 30 % 06/30/21 10:33 Sodium 155 mmol/L (137-145) H 07/01/21 04:32 Potassium 4.1 mmol/L (3.6-5.0) 07/01/21 04:32 Chloride 120.4 mmol/L (98-107) H 07/01/21 04:32 Carbon Dioxide 22 mmol/L (22-30) 07/01/21 04:32 Anion Gap 17 mmol/L 07/01/21 04:32 BUN 14 mg/dL (7-17) 07/01/21 04:32 Creatinine 0.7 mg/dL (0.6-1.2) 07/01/21 04:32 Estimated GFR > 60 ml/min 07/01/21 04:32 BUN/Creatinine Ratio 20 % 07/01/21 04:32 Glucose 132 mg/dL (65-100) H 07/01/21 04:32 POC Glucose 121 mg/dL (70-105) H 07/02/21 07:00 Lactic Acid 1.30 mmol/L (0.7-2.0) 06/30/21 Unknown Calcium 8.2 mg/dL (8.4-10.2) L 07/01/21 04:32 Phosphorus 3.30 mg/dL (2.5-4.5) 07/01/21 04:32 Magnesium 2.40 mg/dL (1.7-2.3) H 07/01/21 04:32 Ferritin 224.7 ng/mL (10.0-200.0) H 06/30/21 08:16 Total Bilirubin 0.50 mg/dL (0.1-1.2) 06/30/21 04:56 Direct Bilirubin 0.2 mg/dL (0-0.2) 06/29/21 13:40 Indirect Bilirubin 0.6 mg/dL 06/29/21 13:40 AST 37 units/L (5-40) 06/30/21 04:56 ALT 18 units/L (7-56) 06/30/21 04:56 Alkaline Phosphatase 121 units/L (35-129) 06/30/21 04:56 Lactate Dehydrogenase 312 units/L (91-180) H 06/30/21 08:16 Troponin T < 0.010 ng/mL (0.00-0.029) 06/29/21 13:40 C-Reactive Protein 12.00 mg/dL (0.00-1.30) H 06/30/21 08:16 NT-Pro-B Natriuret Pep 394.9 pg/mL (0-900) 06/29/21 13:40 Total Protein 5.9 g/dL (6.3-8.2) L 06/30/21 04:56 Albumin 3.9 g/dL (3.9-5) 06/30/21 04:56 Albumin/Globulin Ratio 2.0 % 06/30/21 04:56 Urine Color Colorless (Yellow) 06/29/21 13:01 Urine Turbidity Clear (Clear) 06/29/21 13:01 Urine pH 7.0 (5.0-7.0) 06/29/21 13:01 Ur Specific [place] 1.013 (1.003-1.030) 06/29/21 13:01 Urine Protein <15 mg/dl mg/dL (Negative) 06/29/21 13:01 Urine Glucose (UA) Neg mg/dL (Negative) 06/29/21 13:01 Urine Ketones Neg mg/dL (Negative) 06/29/21 13:01 Urine Blood Sm (Negative) 06/29/21 13:01 Urine Nitrite Neg (Negative) 06/29/21 13:01 Urine Bilirubin Neg (Negative) 06/29/21 13:01 Urine Urobilinogen < 2.0 mg/dL (<2.0) 06/29/21 13:01 Ur Leukocyte Esterase Neg (Negative) 06/29/21 13:01 Urine WBC (Auto) < 1.0 /HPF (0.0-6.0) 06/29/21 13:01 Urine RBC (Auto) < 1.0 /HPF (0.0-6.0) 06/29/21 13:01 Urine Opiates Screen Negative 06/29/21 Unknown Urine Methadone Screen Negative 06/29/21 Unknown Ur Barbiturates Screen Negative 06/29/21 Unknown Ur Phencyclidine Scrn Negative 06/29/21 Unknown Ur Amphetamines Screen Negative 06/29/21 Unknown U Benzodiazepines Scrn Positive 06/29/21 Unknown Urine Cocaine Screen Negative 06/29/21 Unknown U Marijuana (THC) Screen Negative 06/29/21 Unknown Drugs of Abuse Note Disclamer 06/29/21 Unknown Coronavirus (PCR) Negative (Negative) 06/30/21 Unknown Microbiology: Microbiology 06/29/21 17:43 Tracheal Aspirate Sputum Culture - Preliminary 06/29/21 14:08 Peripheral/Venous Blood Culture - Preliminary NO GROWTH AFTER 48 HOURS 06/29/21 13:40 Peripheral/Venous Blood Culture - Preliminary NO GROWTH AFTER 48 HOURS [place]/IV: Voiding Method Indwelling Catheter Active Medications - Current Medications Current Medications: Generic Name Dose Route Start Last Admin Trade Name Freq PRN Reason Stop Dose Admin Acetaminophen 650 mg 06/29/21 20:44 Acetaminophen 325 Mg Tab PO Q4H PRN Pain MILD(1-3)/Fever >100.5/GERONIMO Albuterol 1 mg 06/30/21 12:00 Albuterol 2.5 Mg/3 Ml Nebu IH Q3H PRN Wheezing Citalopram Hydrobromide 10 mg 07/01/21 10:00 07/01/21 09:42 Citalopram 10 Mg Tab PO 10 mg DAILY GARCIA Administration Famotidine 20 mg 07/01/21 11:00 07/01/21 22:11 Famotidine 20 Mg Tab PO 20 mg BID GARCIA Administration Heparin Sodium (Porcine) 5,000 unit 06/29/21 22:00 07/01/21 22:26 Heparin 5,000 Unit/1 Ml Vial SUB-Q 5,000 unit Q12HR GARCIA Administration Hydralazine HCl 10 mg 06/30/21 19:00 07/02/21 02:58 Hydralazine 20 Mg/1 Ml Inj IV 10 mg Q4HR PRN Administration Hypertension Dextrose 1,000 mls @ 100 mls/hr 06/30/21 08:00 07/01/21 05:55 D5w IV 100 mls/hr DIRECT GARCIA Administration Methylprednisolone Sodium Succinate 40 mg 06/29/21 22:00 07/02/21 05:49 Methylprednisolone Sod Succinate 125 Mg/2 Ml Inj IV 40 mg Q8HR GARCIA Administration Metoclopramide HCl 10 mg 06/29/21 20:44 Metoclopramide 10 Mg/2 Ml Inj IV Q6H PRN Nausea And Vomiting Morphine Sulfate 2 mg 06/29/21 20:44 06/30/21 22:11 Morphine 2 Mg/1 Ml Inj IV 2 mg Q4H PRN Administration Pain, Moderate (4-6) Ondansetron HCl 4 mg 06/29/21 20:44 Ondansetron 4 Mg/2 Ml Inj IV Q3H PRN Nausea And Vomiting Sodium Chloride 10 ml 06/29/21 22:00 07/01/21 22:12 Sodium Chloride 0.9% 10 Ml Flush Syringe IV 10 ml BID GARCIA Administration Sodium Chloride 10 ml 06/29/21 20:44 Sodium Chloride 0.9% 10 Ml Flush Syringe IV PRN PRN LINE FLUSH Vancomycin HCl 125 mg 06/30/21 12:00 07/02/21 05:49 Vancomycin 250 Mg/10 Ml Oral Liqd PO 125 mg Q6HR GARCIA Administration Protocol Nutrition/Malnutrition Assess - Dietary Evaluation Nutrition/Malnutrition Findings: Nutrition Notes Start: 06/30/21 11:20 Freq: Status: Active Protocol: Document 07/01/21 17:31 ARNALDO (Rec: 07/01/21 17:38 ARNALDO [id number]) Nutrition Notes Initial or Follow up Brief Note Current Diagnosis Sepsis,Respiratory Failure Other Pertinent Diagnosis Metabolic Encephalopathy, Hypernatremia, Fibromyalgia. Current Diet Pureed Diet (since L 07/01). Height 5 ft 5 in Weight 53.5 kg [place] Body Weight (kg) 56.81 BMI 19.6 Weight change and time frame No body weight change reported in 1 day. Weight Status Appropriate Subjective/Other Information RD consult for routine F/U on Dietary Advancement. Pt now on PO diet, no reports available on Pt's PO intake of meals at the time, will assess at F/U. Pt is on Room Air, O2 saturation @ 99%, according to Physical Assessment History notes. Percent of energy/protein needs met: Prescribed Pureed Diet provides for energy/protein needs (1,804 Kcal/77 g) during LOS. #1 Nutrition Diagnosis Inadequate oral intake Comments: Pt now on PO diet, no reports available on Pt's PO intake of meals at the time, will assess at F/U. Diagnosis Progress(for reassessment Resolved documentation) Nutrition Intervention Change Diet Order: Continue Pureed Diet, Advance as tolerated. Goal #1 Adjust the dietary intervention to better serve Pt's needs and clinical conditions during LOS. Goal #2 Maintain body weight within +/ -3% of admission body weight during LOS. Follow-Up By: 07/08/21 Additional Comments Continue monitoring food tolerance, %PO intake of meals , and BM.
[2021-07-02] MEDS: hydrALAZINE 20 MG/1 ML INJ IV PRN (02:58)
[2021-07-02] MEDS: VANCOMYCIN 250 MG/10 ML ORAL LIQD PO SCH ×3 (05:49→19:15)
[2021-07-02] MEDS: methylPREDNISolone Sod Succinate 125 MG/2 ML INJ IV SCH (05:49)
[2021-07-02 07:22] LABS: Hematocrit 30.7 % (30.3-42.9); Hemoglobin 10.5 gm/dl (10.1-14.3); Mean Corpuscular HGB Conc 34 % (30-34); Mean Corpuscular Volume 102 fl (79-97); Platelet Count 316 K/mm3 (140-440); Red Blood Count 3.01 M/mm3 (3.65-5.03); Red Cell Distribution Width 15.9 % (13.2-15.2)
[2021-07-02 07:28] LABS: Blood Urea Nitrogen 15 mg/dL (7-17); Calcium 8.8 mg/dL (8.4-10.2); Hemolysis Index 43
[2021-07-02 07:32] LABS: BUN/Creatinine Ratio 21
[2021-07-02] MEDS ORDERED: diphenhydrAMINE 25 MG CAP PO PRN (08:09)
[2021-07-02] MEDS: POTASSIUM CHLORIDE ER 20 MEQ TAB PO ONE ×2 (11:07→12:18)
[2021-07-02] MEDS: FAMOTIDINE 20 MG TAB PO SCH ×4 (11:07→23:54)
--- NOTE | 2021-07-02 11:07 | Consultation ---
History of Present Illness - Reason for Consult Consult date: 07/02/21 Reason for consult: confusion - History of Present Psychiatric Illness NPI: Patient is 65 years old female with past medical history of fibromyalgia. Patient brought to the emergency room via EMS from home for evaluation of altered mental status and hypoxia. EMS reported that patient initial oxygen saturation was 50% improved with a nonrebreather to 100% according to the EMS report. Upon arrival to the ER patient found to be obtunded with an oxygen saturation of 75%. Patient with significant altered mental status. Decision to intubate the patient is made by me. I proceeded with intubation using a glidoscope. Patient is preoxygenated up to 80% however unable to increase her oxygen level beyond that. Using etomidate and rocuronium, I was able to past the endotracheal tube through the vocal cord easily. Patient had good breath sound on both side. Patient oxygen saturation improved to 100%. The patient was seen today. She was lying in bed awake. She is confused, and unable to give any insight or history. She responds to every question, with "uh- huh." The nurse caring for the patient states she has been very confused, not eating or taking meds, pulling lines. Will start medications to help regulate mood and make the patient comfortable PAST PSYCHIATRIC HISTORY: Unable to obtain PAST MEDICAL HISTORY: None reported or document Family Psychiatric History: None reported or documented SOCIAL HISTORY Unable to obtain REVIEW OF SYSTEMS Unable to obtain MENTAL STATUS EXAMINATION Unable to obtain Diagnoses: Delirium Treatment Plan Valproic Acid 500mg IV q12h Remeron 7.5mg po qhs Lorazepam 2mg IM q4h prn agitation Medical: per primary Sitter: defer to primary Disposition: Do not recommend acute psychiatric inpatient Will follow. Thanks Case staffed with Dr. Mariee Medications and Allergies Allergies Allergy/AdvReac Type Severity Reaction Status Date / Time acetaminophen AdvReac Rash Verified 06/20/13 14:56 [From Darvocet-N 100] celecoxib [From Celebrex] AdvReac Unknown Verified 06/20/13 14:56 fluoxetine HCl [From Prozac] AdvReac Rash Verified 06/20/13 14:56 propoxyphene napsylate AdvReac Rash Verified 06/20/13 14:56 [From Darvocet-N 100] Home Medications Medication Instructions Recorded Confirmed Last Taken Type Citalopram [celeXA] 10 mg PO DAILY 04/25/14 04/25/14 Unknown History Oxycodone HCl/Acetaminophen 1 each PO Q6HR PRN #20 tablet 06/20/13 Unknown Rx [Percocet 10-325 mg] Pregabalin [Lyrica] 100 mg PO DAILY 06/20/13 06/20/13 Unknown History methOCARBAMOL [Robaxin] 750 mg PO Q8H 06/20/13 06/20/13 Unknown History oxyCODONE /ACETAMINOPHEN [Percocet 1 tab PO Q4H PRN 06/20/13 06/20/13 Unknown History 5/325 mg] EPINEPHrine (NF) [Epipen (Nf)] 0.3 mg IM ONCE PRN #1 syringekit 06/18/16 Unknown Rx Famotidine [Pepcid] 20 mg PO BID #20 tablet 06/18/16 Unknown Rx diphenhydrAMINE [Benadryl CAP] 25 mg PO Q8HR PRN #30 capsule 06/18/16 Unknown Rx predniSONE [Deltasone] 40 mg PO QDAY #10 tab 06/18/16 Unknown Rx methocarbamoL [Robaxin-750] 750 mg PO Q8H PRN #20 tablet 01/17/18 Unknown Rx Active Meds: Active Medications Acetaminophen (Acetaminophen 325 Mg Tab) 650 mg PO Q4H PRN PRN Reason: Pain MILD(1-3)/Fever >100.5/GERONIMO Albuterol (Albuterol 2.5 Mg/3 Ml Nebu) 1 mg IH Q3H PRN PRN Reason: Wheezing Citalopram Hydrobromide (Citalopram 10 Mg Tab) 10 mg PO DAILY [facility] Last Admin: 07/01/21 09:42 Dose: 10 mg Diphenhydramine HCl (Diphenhydramine 25 Mg Cap) 25 mg PO Q8H PRN PRN Reason: Itching Famotidine (Famotidine 20 Mg Tab) 20 mg PO BID [facility] Last Admin: 07/01/21 22:11 Dose: 20 mg Heparin Sodium (Porcine) (Heparin 5,000 Unit/1 Ml Vial) 5,000 unit SUB-Q Q12HR [facility] Last Admin: 07/01/21 22:26 Dose: 5,000 unit Hydralazine HCl (Hydralazine 20 Mg/1 Ml Inj) 10 mg IV Q4HR PRN PRN Reason: Hypertension Last Admin: 07/02/21 02:58 Dose: 10 mg Dextrose (D5w) 1,000 mls @ 100 mls/hr IV DIRECT GARCIA Last Admin: 07/01/21 05:55 Dose: 100 mls/hr Methocarbamol (Methocarbamol 750 Mg Tab) 750 mg PO Q8H GARCIA Methylprednisolone Sodium Succinate (Methylprednisolone Sod Succinate 125 Mg/2 Ml Inj) 40 mg IV Q8HR GARCIA Last Admin: 07/02/21 05:49 Dose: 40 mg Metoclopramide HCl (Metoclopramide 10 Mg/2 Ml Inj) 10 mg IV Q6H PRN PRN Reason: Nausea And Vomiting Morphine Sulfate (Morphine 2 Mg/1 Ml Inj) 2 mg IV Q4H PRN PRN Reason: Pain, Moderate (4-6) Last Admin: 06/30/21 22:11 Dose: 2 mg Ondansetron HCl (Ondansetron 4 Mg/2 Ml Inj) 4 mg IV Q3H PRN PRN Reason: Nausea And Vomiting Sodium Chloride (Sodium Chloride 0.9% 10 Ml Flush Syringe) 10 ml IV BID GARCIA Last Admin: 07/01/21 22:12 Dose: 10 ml Sodium Chloride (Sodium Chloride 0.9% 10 Ml Flush Syringe) 10 ml IV PRN PRN PRN Reason: LINE FLUSH Vancomycin HCl (Vancomycin 250 Mg/10 Ml Oral Liqd) 125 mg PO Q6HR [facility]; Protocol Last Admin: 07/02/21 05:49 Dose: 125 mg Mental Status Exam - Vital signs Last Vital Signs Temp 98.2 F 07/02/21 05:31 Pulse 84 07/02/21 05:31 Resp 18 07/02/21 05:31 BP 171/93 07/02/21 05:31 Pulse Ox 98 07/02/21 10:00 Results Result Diagrams: 07/02/21 06:32 07/02/21 06:32 Abnormal lab results 07/01/21 07/01/21 07/01/21 Range/Units 11:20 17:38 21:07 RBC (3.65-5.03) M/mm3 MCV (79-97) fl MCH (28-32) pg RDW (13.2-15.2) % Sodium (137-145) mmol/L Potassium (3.6-5.0) mmol/L Chloride (98-107) mmol/L Carbon Dioxide (22-30) mmol/L Glucose (65-100) mg/dL POC Glucose 120 H 120 H 121 H (70-105) mg/dL 07/02/21 07/02/21 07/02/21 Range/Units 06:32 06:32 07:00 RBC 3.01 L (3.65-5.03) M/mm3 MCV 102 H (79-97) fl MCH 35 H (28-32) pg RDW 15.9 H (13.2-15.2) % Sodium 152 H (137-145) mmol/L Potassium 3.3 L (3.6-5.0) mmol/L Chloride 115.2 H (98-107) mmol/L Carbon Dioxide 21 L (22-30) mmol/L Glucose 120 H (65-100) mg/dL POC Glucose 121 H (70-105) mg/dL All other labs normal.
[2021-07-02] MEDS: HEPARIN 5,000 UNIT/1 ML VIAL SUB-Q SCH (11:08)
[2021-07-02] MEDS ORDERED: LORazepam 2 MG/ML VIAL IM PRN (11:10)
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
[2021-07-02] MEDS: CITALOPRAM 10 MG TAB PO SCH ×2 (11:56→12:15)
--- NOTE | 2021-07-02 12:01 | Progress Note ---
Assessment and Plan Impression: Acute hypoxic hypercapnic respiratory failure Possible benzodiazepine overdose Suspect chronic pain syndrome Hyponatremia/dehydration Diarrhea possible possible colitis, rule out C. difficile colitis Malnutrition Recommendation: Patient has been successfully extubated and currently on room air, out of ICU.. Increase free water intake and D5W infusion for hyponatremia. Work-up for C. difficile colitis as planned. No active pulmonary issues. We will sign off. Thank you Subjective Date of service: 07/02/21 Interval history: Patient is transferred out of ICU. Pulmonary roman stable on room air Objective Vital Signs - 12hr 07/02/21 07/02/21 07/02/21 02:58 05:31 10:00 Temperature 98.2 F Pulse Rate 71 84 Respiratory 18 Rate Blood Pressure 169/88 171/93 O2 Sat by Pulse 96 98 Oximetry 07/02/21 11:11 Temperature 97.2 F L Pulse Rate 56 L Respiratory 16 Rate Blood Pressure 131/65 O2 Sat by Pulse 94 Oximetry Constitutional: no acute distress, other (Awake and responsive mildly confused) ENT: oropharynx dry Neck: supple, no JVD Ascultation: Bilateral: clear Cardiovascular: regular rate and rhythm Gastrointestinal: normoactive bowel sounds, soft, non-tender Extremities: no cyanosis, no edema Neurologic: other (Mildly confused) Psychiatric: other (Mild confusion) CBC and BMP: 07/02/21 06:32 07/02/21 06:32 ABG, PT/INR, D-dimer: ABG ABG pH 7.405 pH Units (7.350-7.450) 06/30/21 10:33 ABG pCO2 31.0 mm Hg 06/30/21 10:33 ABG pO2 100.0 mm Hg (80.0-90.0) H 06/30/21 10:33 ABG O2 Saturation 97.7 % (95.0-99.0) 06/30/21 10:33 PT/INR, D-dimer PT 14.2 Sec. (12.2-14.9) 06/29/21 13:40 INR 0.99 (0.87-1.13) 06/29/21 13:40 D-Dimer 1121.59 ng/mlDDU (0-234) H 06/30/21 08:16 Abnormal lab findings: Abnormal Labs 06/29/21 06/29/21 06/29/21 13:40 13:40 13:40 WBC RBC 2.47 L Hgb 8.5 L Hct 26.0 L MCV 105 H MCH 34 H RDW 16.4 H Lymph % (Auto) Lymph # (Auto) Seg Neutrophils % Seg Neuts % (Manual) 90.0 H Lymphocytes % (Manual) 5.0 L Nucleated RBC % 1.0 H Lymphocytes # (Manual) 0.3 L D-Dimer ABG pH ABG pO2 ABG HCO3 ABG O2 Saturation ABG Base Excess ABG Hemoglobin Sodium Potassium Chloride Carbon Dioxide Glucose POC Glucose Lactic Acid 2.80 H* Calcium Magnesium Ferritin AST 65 H Alkaline Phosphatase 153 H Lactate Dehydrogenase C-Reactive Protein Total Protein 6.2 L 06/29/21 06/29/21 06/29/21 13:40 14:20 18:05 WBC RBC Hgb Hct MCV MCH RDW Lymph % (Auto) Lymph # (Auto) Seg Neutrophils % Seg Neuts % (Manual) Lymphocytes % (Manual) Nucleated RBC % Lymphocytes # (Manual) D-Dimer ABG pH 7.164 L* 7.346 L ABG pO2 477.1 H 100.0 H ABG HCO3 27.4 H ABG O2 Saturation 99.6 H ABG Base Excess -3.3 L ABG Hemoglobin 9.1 L 8.5 L Sodium 149 H Potassium 3.5 L Chloride 112.8 H Carbon Dioxide Glucose 144 H POC Glucose Lactic Acid Calcium 7.7 L Magnesium Ferritin AST Alkaline Phosphatase Lactate Dehydrogenase C-Reactive Protein Total Protein 06/30/21 06/30/21 06/30/21 04:08 04:56 04:56 WBC 4.2 L RBC 2.44 L Hgb 8.4 L Hct 25.2 L MCV 104 H MCH 35 H RDW 16.0 H Lymph % (Auto) 8.1 L Lymph # (Auto) 0.3 L Seg Neutrophils % 88.4 H Seg Neuts % (Manual) Lymphocytes % (Manual) Nucleated RBC % Lymphocytes # (Manual) D-Dimer ABG pH 7.474 H ABG pO2 152.3 H ABG HCO3 ABG O2 Saturation ABG Base Excess -2.6 L ABG Hemoglobin 8.1 L Sodium 156 H Potassium Chloride 123.6 H Carbon Dioxide 19 L Glucose 126 H POC Glucose Lactic Acid Calcium 7.3 L Magnesium Ferritin AST Alkaline Phosphatase Lactate Dehydrogenase C-Reactive Protein Total Protein 5.9 L 06/30/21 06/30/21 06/30/21 08:16 08:16 08:16 WBC RBC Hgb Hct MCV MCH RDW Lymph % (Auto) Lymph # (Auto) Seg Neutrophils % Seg Neuts % (Manual) Lymphocytes % (Manual) Nucleated RBC % Lymphocytes # (Manual) D-Dimer 1121.59 H ABG pH ABG pO2 ABG HCO3 ABG O2 Saturation ABG Base Excess ABG Hemoglobin Sodium Potassium Chloride Carbon Dioxide Glucose POC Glucose Lactic Acid Calcium Magnesium Ferritin 224.7 H AST Alkaline Phosphatase Lactate Dehydrogenase 312 H C-Reactive Protein 12.00 H Total Protein 06/30/21 06/30/21 06/30/21 10:33 11:08 16:35 WBC RBC Hgb Hct MCV MCH RDW Lymph % (Auto) Lymph # (Auto) Seg Neutrophils % Seg Neuts % (Manual) Lymphocytes % (Manual) Nucleated RBC % Lymphocytes # (Manual) D-Dimer ABG pH ABG pO2 100.0 H ABG HCO3 19.0 L ABG O2 Saturation ABG Base Excess -5.0 L ABG Hemoglobin 8.8 L Sodium Potassium Chloride Carbon Dioxide Glucose POC Glucose 117 H 111 H Lactic Acid Calcium Magnesium Ferritin AST Alkaline Phosphatase Lactate Dehydrogenase C-Reactive Protein Total Protein 07/01/21 07/01/21 07/01/21 00:08 04:32 04:32 WBC RBC 2.60 L Hgb 9.0 L Hct 27.1 L MCV 104 H MCH 35 H RDW 16.3 H Lymph % (Auto) Lymph # (Auto) Seg Neutrophils % Seg Neuts % (Manual) Lymphocytes % (Manual) Nucleated RBC % Lymphocytes # (Manual) D-Dimer ABG pH ABG pO2 ABG HCO3 ABG O2 Saturation ABG Base Excess ABG Hemoglobin Sodium 155 H Potassium Chloride 120.4 H Carbon Dioxide Glucose 132 H POC Glucose 129 H Lactic Acid Calcium 8.2 L Magnesium 2.40 H Ferritin AST Alkaline Phosphatase Lactate Dehydrogenase C-Reactive Protein Total Protein 07/01/21 07/01/21 07/01/21 05:48 11:20 17:38 WBC RBC Hgb Hct MCV MCH RDW Lymph % (Auto) Lymph # (Auto) Seg Neutrophils % Seg Neuts % (Manual) Lymphocytes % (Manual) Nucleated RBC % Lymphocytes # (Manual) D-Dimer ABG pH ABG pO2 ABG HCO3 ABG O2 Saturation ABG Base Excess ABG Hemoglobin Sodium Potassium Chloride Carbon Dioxide Glucose POC Glucose 116 H 120 H 120 H Lactic Acid Calcium Magnesium Ferritin AST Alkaline Phosphatase Lactate Dehydrogenase C-Reactive Protein Total Protein 07/01/21 07/02/21 07/02/21 21:07 06:32 06:32 WBC RBC 3.01 L Hgb Hct MCV 102 H MCH 35 H RDW 15.9 H Lymph % (Auto) Lymph # (Auto) Seg Neutrophils % Seg Neuts % (Manual) Lymphocytes % (Manual) Nucleated RBC % Lymphocytes # (Manual) D-Dimer ABG pH ABG pO2 ABG HCO3 ABG O2 Saturation ABG Base Excess ABG Hemoglobin Sodium 152 H Potassium 3.3 L Chloride 115.2 H Carbon Dioxide 21 L Glucose 120 H POC Glucose 121 H Lactic Acid Calcium Magnesium Ferritin AST Alkaline Phosphatase Lactate Dehydrogenase C-Reactive Protein Total Protein 07/02/21 07:00 WBC RBC Hgb Hct MCV MCH RDW Lymph % (Auto) Lymph # (Auto) Seg Neutrophils % Seg Neuts % (Manual) Lymphocytes % (Manual) Nucleated RBC % Lymphocytes # (Manual) D-Dimer ABG pH ABG pO2 ABG HCO3 ABG O2 Saturation ABG Base Excess ABG Hemoglobin Sodium Potassium Chloride Carbon Dioxide Glucose POC Glucose 121 H Lactic Acid Calcium Magnesium Ferritin AST Alkaline Phosphatase Lactate Dehydrogenase C-Reactive Protein Total Protein
[2021-07-02] MEDS: DEXTROSE 5% IN WATER 1,000 ML IV SCH ×2 (12:57→23:40)
[2021-07-02] MEDS: POTASSIUM CHLORIDE 10 MEQ 10 MEQ/100 ML BAG IV SCH ×3 (17:55→20:05)
[2021-07-02] MEDS: VALPROATE SODIUM 500 MG in SODIUM CHLORIDE 0.9% 100 ML IV SCH ×2 (18:46→23:41)
[2021-07-02] MEDS: MIRTAZAPINE 15 MG TAB PO SCH ×2 (23:52→23:55)
[2021-07-03] MEDS: VANCOMYCIN 250 MG/10 ML ORAL LIQD PO SCH ×4 (00:42→17:39)
[2021-07-03] MEDS: HEPARIN 5,000 UNIT/1 ML VIAL SUB-Q SCH ×3 (00:44→22:32)
[2021-07-03] MEDS: FAMOTIDINE 20 MG TAB PO SCH ×3 (00:45→22:34)
[2021-07-03 08:13] LABS: Blood Urea Nitrogen 16 mg/dL (7-17); Calcium 8.4 mg/dL (8.4-10.2); Hemolysis Index 1
[2021-07-03 08:19] LABS: BUN/Creatinine Ratio 23
[2021-07-03] MEDS: CITALOPRAM 10 MG TAB PO SCH (10:19)
[2021-07-03] MEDS: VALPROATE SODIUM 500 MG in SODIUM CHLORIDE 0.9% 100 ML IV SCH ×2 (10:20→22:39)
--- NOTE | 2021-07-03 10:47 | Progress Note ---
Subjective - Reason for Consult Consult date: 07/03/21 Reason for consult: delirium - Chief Complaint Chief complaint: The patient was seen today. She is much better today. The patient a/o x 3. She is conversational and lucid. She verbalizes feeling much better. She says she came to the hospital for shortness of breath. The patient says she didn't have her inhaler. She says she sees Dr. Humphrey at the [facility] for her shortness of breath. She says she's never seen a psychiatrist in the past. She denies SI/HI. The patient says "my sons would kill me. No. I'm not suicidal." She says she has tow sons and two girls she raised like her own. She talks of her grandson who graduated college last June. She says "I raised him too. He is going to be upset that I'm in here." The patient denies hallucinations of any kind. REVIEW OF SYSTEMS Constitutional: Negative for weight loss ENT: Negative for stridor Respiratory: Negative for cough or hemoptysis All other systems reviewed and are negative MENTAL STATUS EXAMINATION General Appearance and Behavior: Age appropriate, good hygiene, wearing appropriate clothes, good eye contact, calm, cooperative, pleasant and polite Cooperation: Participating/engaged Psychomotor Behavior: Psychomotor normal Mood: a lot better Affect and affective range: congruent with stated mood, tearful Thought Process: goal directed Thought Content: None Speech: normal tone and pace Suicidal Ideation: Denies Homicidal Ideation: Denies Hallucinations: Denies Delusions: None elicited Impulse Control: [place]la Insight and Judgment: Normal insight and judgment Memory: Limited Attention: attentive Orientation: Alert, oriented Diagnoses: Delirium Treatment Plan Remeron 7.5mg po qhs Medical: per primary Sitter: defer to primary Disposition: Do not recommend acute psychiatric inpatient Will sign off. Thanks Case staffed with Dr. Mariee Mental Status Exam - Vital signs Last Vital Signs Temp 98.0 F 07/03/21 04:36 Pulse 53 L 07/03/21 04:36 Resp 16 07/03/21 04:36 BP 161/73 07/03/21 04:36 Pulse Ox 96 07/03/21 04:36
[2021-07-03] MEDS ORDERED: POTASSIUM CHLORIDE ER 20 MEQ TAB PO ONE (11:00)
[2021-07-03] MEDS ORDERED: hydrALAZINE 20 MG/1 ML INJ IV PRN (11:31)
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
[2021-07-03] MEDS ORDERED: ALBUTEROL 2.5 MG/3 ML NEBU IH PRN (12:59)
[2021-07-03] MEDS: oxyCODONE /ACETAMINOPHEN 5-325MG TAB PO PRN ×2 (14:45→22:30)
[2021-07-03] MEDS: DEXTROSE 5% IN WATER 1,000 ML IV SCH ×2 (14:47→16:59)
[2021-07-03] MEDS: MORPHINE 2 MG/1 ML INJ IV PRN (20:09)
[2021-07-03] MEDS: MIRTAZAPINE 15 MG TAB PO SCH (22:32)
[2021-07-03 22:58] VITALS: BP 155/73
[2021-07-04] MEDS: VANCOMYCIN 250 MG/10 ML ORAL LIQD PO SCH ×2 (00:46→05:39)
[2021-07-04] MEDS: MORPHINE 2 MG/1 ML INJ IV PRN ×2 (05:42→11:05)
[2021-07-04] MEDS: oxyCODONE /ACETAMINOPHEN 5-325MG TAB PO PRN (07:42)
[2021-07-04] MEDS ORDERED: POTASSIUM CHLORIDE ER 20 MEQ TAB PO NR (08:00)
[2021-07-04] MEDS ORDERED: DIVALPROEX DR 500 MG TAB PO SCH (10:00)
[2021-07-04] MEDS: CITALOPRAM 10 MG TAB PO SCH (10:13)
[2021-07-04] MEDS: FAMOTIDINE 20 MG TAB PO SCH (10:13)
[2021-07-04] MEDS: HEPARIN 5,000 UNIT/1 ML VIAL SUB-Q SCH (11:04)
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
[2021-07-04 13:23] LABS: BUN/Creatinine Ratio 13; Blood Urea Nitrogen 12 mg/dL (7-17); Calcium 8.3 mg/dL (8.4-10.2); Hemolysis Index 43
== END 2021-07-04 14:40 | disposition home or self-care (01) | DRG 917 ==
LOC: ED 12:38 → CC1 20:44 → 3A 07-01 13:35
PROVIDERS: ADMIT Internal Medicine; ATTEND Internal Medicine
PROC: 4A033R1 Measurement of Arterial Saturation, Peripheral, Percutaneous Approach (ICD-10-PCS; principal; 2021-06-29)
PROC: 5A1945Z Respiratory Ventilation, 24-96 Consecutive Hours (ICD-10-PCS; 2021-06-29)
PROC: 0BH17EZ Insertion of Endotracheal Airway into Trachea, Via Natural or Artificial Opening (ICD-10-PCS; 2021-06-29)
DX: T42.4X1A Poisoning by benzodiazepines, accidental (unintentional), initial encounter (principal); A41.9 Sepsis, unspecified organism; J96.01 Acute respiratory failure with hypoxia; G92.8 Other toxic encephalopathy; J96.02 Acute respiratory failure with hypercapnia; K52.9 Noninfective gastroenteritis and colitis, unspecified; E87.8 Other disorders of electrolyte and fluid balance, not elsewhere classified; E87.0 Hyperosmolality and hypernatremia; E86.0 Dehydration; E44.1 Mild protein-calorie malnutrition; E87.6 Hypokalemia; F32.9 Major depressive disorder, single episode, unspecified; M79.7 Fibromyalgia; F11.20 Opioid dependence, uncomplicated; R41.0 Disorientation, unspecified; Z20.822 Contact with and (suspected) exposure to COVID-19; Z88.8 Allergy status to other drugs, medicaments and biological substances; Z68.1 Body mass index [BMI] 19.9 or less, adult; Z90.49 Acquired absence of other specified parts of digestive tract; T42.4X5A Adverse effect of benzodiazepines, initial encounter; Y92.89 Other specified places as the place of occurrence of the external cause
CPT/HCPCS: 36415; 36600; 70450; 71045; 71275; 74018; 74177; 80048; 80053; 80076; 80307; 81001; 82140; 82728; 82803; 82962; 83615; 83735; 83880; 84100; 84145; 84484; 85007; 85025; 85027; 85379; 85610; 85730; 86140; 87040; 87070; 87205; 87493; 93005; 93970; 94002; 94003; 94640; 94760; 96361; 96365; 96375; G0378; J3490; J0360; J0692; J1644; J2250; J2270; J2405; J2543; J2930; J3010; J3370; J3480; J7030; J7050; J7070; Q9967; U0003